=== PATIENT | male | born 1955 | race Caucasian/White ===

== ENCOUNTER 2017-10-14 19:45 | Emergency (ER) | payer MEDICARE, OTHER, SELFPAY ==
[2017-10-14] MEDS ORDERED: NA CHLORIDE 0.9% 2,000 ML ONE (20:17)
[2017-10-14 20:49] LABS: Absolute Lymphocytes (CBC) 0.9 K/uL (0.7-4.9); Absolute Monocytes 0.8 K/uL (0.1-1.3); Absolute Neutrophil 9.6 K/uL (1.8-8.0); Basophils % 0.4 % (0-1.3); Eosinophils % 0.1 % (0-4.4); Hematocrit 30.7 % (39.6-49.0); Lymphocytes % 8.3 % (15.3-44.8); MCH 30.8 pg (27.0-35.0); MCV 91.5 fL (80-100); MPV 8.3 fL (7.6-11.3); Monocytes % 6.8 % (3.3-12.3); RBC Red Blood Cell Count 3.36 M/uL (4.33-5.43)
[2017-10-14 20:51] LABS: Protime INR 1.26
[2017-10-14] MEDS ORDERED: ONDANSETRON 4 MG/2 ML VIAL ONE (20:54)
[2017-10-14] MEDS ORDERED: MORPHINE 4 MG/ML SYR ONE (20:54)
[2017-10-14 21:09] LABS: Urine Blood NEGATIVE (NEG); Urine Glucose 2+ (NEG); Urine Protein NEGATIVE (NEG); Urine Specific Gravity 1.015 (1.005-1.030)
[2017-10-14 21:17] LABS: Albumin 3.1 g/dL (3.4-5.0); Bilirubin Direct 0.2 mg/dL (0-0.2); Magnesium 2.3 mg/dL (1.8-2.4); Protein, Total 7.3 g/dL (6.4-8.2)
[2017-10-14 21:19] LABS: Potassium 5.8 mmol/L (3.5-5.1)
[2017-10-14] MEDS ORDERED: LIDOCAINE VISCOUS 2% SOLN 15 ML UDC ONE (21:20)
[2017-10-14] MEDS ORDERED: INSULIN -REGULAR HUMAN 50 UNIT/0.5 ML ML ONE ×2 (21:38→23:01)
[2017-10-14] MEDS ORDERED: PANTOPRAZOLE 40 MG INJ ONE (21:39)
[2017-10-14] MEDS ORDERED: NA CHLORIDE 0.9% 250 ML ONE (21:39)
--- NOTE | 2017-10-14 21:39 | RAD REPORT ---
EXAM DESCRIPTION: RAD - Abdomen Acute Series - 10/14/2017 9:13 pm CLINICAL HISTORY: Abdominal pain and vomiting FINDINGS: The lungs appear clear of acute infiltrate. Free air is not seen beneath the diaphragm The bowel gas pattern is unremarkable. Postsurgical changes involve the abdomen.
--- NOTE | 2017-10-14 22:20 | EDPHYS ---
Physician Documentation [facility] Name: Yoan Monterroso Sr Age: 62 yrs Sex: Male : 1955 Arrival Date: 10/14/2017 Time: 19:46 Bed 30 Private MD: ED Physician Justyn Frias HPI: 10/14 20:10 This 62 yrs old Male presents to ER via Wheelchair with complaints of pkl Nausea/Vomiting, Weakness. 20:10 The patient presents to the emergency department vomiting blood, a moderate amount, pkl bright red, 3 times since symptom onset. Onset: The symptoms/episode began/occurred yesterday, No vomiting blood today. Associated signs and symptoms: Pertinent positives: feeling weak. Historical: - Allergies: 19:52 No Known Allergies; aj - Home Meds: 19:52 Furosemide Oral [Active]; Metformin Oral [Active]; Spironolactone Oral [Active]; aj - PMHx: 19:52 Hepatitis; Hypertension; Diabetes - NIDDM; aj - PSHx: 19:52 Gastric Bypass; aj - Immunization history:: Adult Immunizations up to date. - Social history:: Smoking status: Patient/guardian denies using tobacco. - Ebola Screening: : Patient negative for fever greater than or equal to 101.5 degrees Fahrenheit, and additional compatible Ebola Virus Disease symptoms Patient denies exposure to infectious person Patient denies travel to an Ebola-affected area in the 21 days before illness onset No symptoms or risks identified at this time. ROS: 20:10 Eyes: Negative for injury, pain, redness, and discharge, ENT: Negative for injury, pkl pain, and discharge, Neck: Negative for injury, pain, and swelling, Cardiovascular: Negative for chest pain, palpitations, and edema, Respiratory: Negative for shortness of breath, cough, wheezing, and pleuritic chest pain. 20:10 Abdomen/GI: Positive for vomiting blood. 20:10 Back: Negative for acute changes. 20:10 : Negative for urinary symptoms. 20:10 MS/extremity: Negative for acute changes. 20:10 Skin: Negative for rash. 20:10 Neuro: Negative for altered mental status. Exam: 20:41 Head/Face: Normocephalic, atraumatic. Eyes: Pupils equal round and reactive to light, pkl extra-ocular motions intact. Lids and lashes normal. Conjunctiva and sclera are non-icteric and not injected. Cornea within normal limits. Periorbital areas with no swelling, redness, or edema. ENT: Nares patent. No nasal discharge, no septal abnormalities noted. Tympanic membranes are normal and external auditory canals are clear. Oropharynx with no redness, swelling, or masses, exudates, or evidence of obstruction, uvula midline. Mucous membranes moist. Neck: Trachea midline, no thyromegaly or masses palpated, and no cervical lymphadenopathy. Supple, full range of motion without nuchal rigidity, or vertebral point tenderness. No Meningismus. Chest/axilla: Normal chest wall appearance and motion. Nontender with no deformity. No lesions are appreciated. Cardiovascular: Regular rate and rhythm with a normal S1 and S2. No gallops, murmurs, or rubs. Normal PMI, no JVD. No pulse deficits. Respiratory: Lungs have equal breath sounds bilaterally, clear to auscultation and percussion. No rales, rhonchi or wheezes noted. No increased work of breathing, no retractions or nasal flaring. 20:41 Abdomen/GI: Bowel sounds: normal, Palpation: abdomen is soft and non-tender, in all quadrants. 20:41 Back: Exam negative for acute changes. 20:41 : Exam negative for acute changes. 20:41 Musculoskeletal/extremity: Exam is negative for acute changes. 20:41 Skin: Exam negative for rash. 20:41 Neuro: Orientation: is normal, Mentation: is normal, Cranial nerves: grossly normal, Motor: is normal. 21:27 Abdomen/GI: Rectal exam: Stool: guaiac positive, the exam is chaperoned by the nurse. pk Vital Signs: 19:52 BP 118 / 69; Pulse 124; Resp 19; Temp 97.8; Pulse Ox 100% on R/A; Weight 72.57 kg; aj Height 5 ft. 11 in. (180.34 cm) (R); 21:43 BP 117 / 67; Pulse 107; Resp 18; Pulse Ox 100% on R/A; Pain 0/10; mg2 19:52 Body Mass Index 22.32 (72.57 kg, 180.34 cm) aj MDM: 19:55 Patient medically screened. pkl 22:17 Data reviewed: vital signs, nurses notes, lab test result(s), EKG, radiologic studies, pkl plain films. ED course: Talked to Dr. Mckay, transfer to [facility]. 10/14 20:04 Order name: Basic Metabolic Panel; Complete Time: 21:20 pkl 10/14 20:04 Order name: CBC with Diff; Complete Time: 20:55 pkl 10/14 20:04 Order name: Ckmb; Complete Time: 21:20 pkl 10/14 20:04 Order name: CPK; Complete Time: 21:20 pkl 10/14 20:04 Order name: LFT's; Complete Time: 21:20 pkl 10/14 20:04 Order name: Magnesium; Complete Time: 21:20 pkl 10/14 20:04 Order name: NT PRO-BNP; Complete Time: 21:20 pkl 10/14 20:04 Order name: PT-INR; Complete Time: 20:55 pkl 10/14 20:04 Order name: Ptt, Activated; Complete Time: 20:55 pkl 10/14 20:04 Order name: Troponin (emerg Dept Use Only); Complete Time: 21:15 pkl 10/14 20:04 Order name: Type And Screen; Complete Time: 21:45 pkl 10/14 20:04 Order name: Amylase, Serum; Complete Time: 21:20 pkl 10/14 20:04 Order name: Lipase; Complete Time: 21:20 pkl 10/14 21:03 Order name: Urine Dipstick--Ancillary (enter results); Complete Time: 21:15 rg2 10/14 20:04 Order name: EKG; Complete Time: 20:05 pkl 10/14 20:04 Order name: Cardiac monitoring; Complete Time: 20:16 pkl 10/14 20:04 Order name: EKG - Nurse/Tech; Complete Time: 20:16 pkl 10/14 20:04 Order name: IV Saline Lock; Complete Time: 20:22 pkl 10/14 20:07 Order name: XRAY Abdomen Acute Series; Complete Time: 21:45 pkl 18 21:30 Order name: ABO/RH no charge; Complete Time: 21:45 EDMS 10/14 22:44 Order name: Chem 7; Complete Time: 23:53 mg2 10/14 22:44 Order name: CBC with Diff; Complete Time: 23:53 mg2 10/14 20:04 Order name: Labs collected and sent; Complete Time: 20: pkl 10/14 20:04 Order name: O2 Per Protocol; Complete Time: 20: pkl 10/14 20:04 Order name: O2 Sat Monitoring; Complete Time: 20: pkl 10/14 20:04 Order name: Urine Dipstick-Ancillary (obtain specimen); Complete Time: : pkl 10/14 21:29 Order name: Accucheck Blood Glucose: q hourly; Complete Time: 23:27 pkl Administered Medications: 20:21 Drug: NS 0.9% 1000 ml Route: IV; Rate: 1000 ml; Site: right antecubital; mg2 23:42 Follow up: Response: No adverse reaction; IV Status: Completed infusion mg2 21:21 Drug: morphine 4 mg Route: IVP; Site: right antecubital; mg2 23:42 Follow up: Response: No adverse reaction; Marked relief of symptoms mg2 21:21 Drug: Zofran 4 mg Route: IVP; Site: right antecubital; mg2 23:42 Follow up: Response: No adverse reaction; Marked relief of symptoms mg2 21:42 Drug: ProTONIX 8 mg/hr Route: IV; Rate: 25 ml/hr; Site: right antecubital; mg2 23:41 Follow up: Response: No adverse reaction; IV Status: Completed infusion; Infusion mg2 continued upon transfer 21:43 Drug: NS 0.9% 1000 ml Route: IV; Rate: 125 ml/hr; Site: right antecubital; mg2 23:42 Follow up: Response: No adverse reaction; IV Status: Infusion continued upon transfer mg2 21:53 Drug: Insulin Regular Human 10 units {Co-Signature: tl3 (Tisha Stubbs RN).} Route: IVP; mg2 Site: right antecubital; 22:40 Follow up: Response: No adverse reaction; Blood sugar is lowered mg2 23:00 Drug: Insulin Regular Human 10 units {Co-Signature: tl3 (Tisha Stubbs RN).} Route: IVP; mg2 Site: right antecubital; 23:40 Follow up: Response: No adverse reaction; Other; patient transferred to [place] [id number] Point of Care Testing: Guaiac: 21:29 Stool Guaiac: Positive; Stool Hemoccult Control: Pass; mg2 Disposition: 10/14/17 22:20 Transfer ordered to [facility] (formerly [facility]3]. Diagnosis is G. I. Bleeding. Uncontrolled diabetes. Dehydration. - Reason for transfer: Higher level of care. - Accepting physician is Dr. Mckay. - Condition is Stable. - Problem is new. - Symptoms have improved. Signatures: Dispatcher [employer] EDMS Rayna De Luna RN RN aj Justyn Frias MD MD pkl Saman Kulkarni RN RN mg2 Tisha Stubbs RN tl3 Corrections: (The following items were deleted from the chart) 21:06 20:05 Chest Single View+RAD.RAD.BRZ ordered. EDMS EDMS 21:28 20:45 NG Tube ordered. pkl mg2 23:44 22:20 10/14/2017 22:20 Transfer ordered to [facility] (formerly [facility]3]. Diagnosis is G. I. Bleeding. mg2 Uncontrolled diabetes. Dehydration. Reason for transfer: Higher level of care. Accepting physician is Dr. Mckay. Condition is Stable. Problem is new. Symptoms have improved. pkl
--- NOTE | 2017-10-14 22:20 | ER ---
Nurse's Notes [facility] Name: Yoan Monterroso Sr Age: 62 yrs Sex: Male : 1955 Arrival Date: 10/14/2017 Time: 19:46 Bed 30 Private MD: Diagnosis: G. I. Bleeding. Uncontrolled diabetes. Dehydration Presentation: 10/14 19:50 Presenting complaint: Patient states: Vomiting yesterday with dark red blood. Patient aj reports feeling weak and fatigued with headache. Transition of care: patient was not received from another setting of care. Onset of symptoms was October 13, 2017. Risk Assessment: Do you want to hurt yourself or someone else? Patient reports no desire to harm self or others. Initial Sepsis Screen: Does the patient meet any 2 criteria? HR > 90 bpm. Does the patient have a suspected source of infection? No. Patient's initial sepsis screen is negative. Care prior to arrival: None. 19:50 Method Of Arrival: Wheelchair aj 19:50 Acuity: UMER 3 aj Triage Assessment: 19:52 General: Appears in no apparent distress. uncomfortable, Behavior is calm, cooperative, aj appropriate for age. Pain: Denies pain. Neuro: Level of Consciousness is awake, alert, obeys commands, Oriented to person, place, time, situation, Appropriate for age. Respiratory: Airway is patent Respiratory effort is even, unlabored, Respiratory pattern is regular, symmetrical. GI: Reports nausea, vomiting. Derm: Skin is intact, is healthy with good turgor, Skin is pink, warm \T\ dry. normal. Historical: - Allergies: 19:52 No Known Allergies; aj - Home Meds: 19:52 Furosemide Oral [Active]; Metformin Oral [Active]; Spironolactone Oral [Active]; aj - PMHx: 19:52 Hepatitis; Hypertension; Diabetes - NIDDM; aj - PSHx: 19:52 Gastric Bypass; aj - Immunization history:: Adult Immunizations up to date. - Social history:: Smoking status: Patient/guardian denies using tobacco. - Ebola Screening: : Patient negative for fever greater than or equal to 101.5 degrees Fahrenheit, and additional compatible Ebola Virus Disease symptoms Patient denies exposure to infectious person Patient denies travel to an Ebola-affected area in the 21 days before illness onset No symptoms or risks identified at this time. Screenin:22 Abuse screen: Denies threats or abuse. Denies injuries from another. Nutritional mg2 screening: No deficits noted. Tuberculosis screening: No symptoms or risk factors identified. Fall Risk IV access (20 points). Assessment: 20:23 General: Appears in no apparent distress. comfortable, Behavior is calm, cooperative. mg2 Pain: Denies pain. Neuro: Level of Consciousness is awake, alert, obeys commands, Oriented to person, place, time, situation. Respiratory: Airway is patent Respiratory effort is even, unlabored, Respiratory pattern is regular, symmetrical. GI: Reports hematemesis. : No signs and/or symptoms were reported regarding the genitourinary system. EENT: No signs and/or symptoms were reported regarding the EENT system. Derm: Skin is intact, Skin is pale. Musculoskeletal: No signs and/or symptoms reported regarding the musculoskeletal system. 20:59 Reassessment: patient sent to xray. mg2 23:43 Reassessment: report given to Caroline Camp RN of [facility]. mg2 Vital Signs: 19:52 BP 118 / 69; Pulse 124; Resp 19; Temp 97.8; Pulse Ox 100% on R/A; Weight 72.57 kg; aj Height 5 ft. 11 in. (180.34 cm) (R); 21:43 BP 117 / 67; Pulse 107; Resp 18; Pulse Ox 100% on R/A; Pain 0/10; mg2 19:52 Body Mass Index 22.32 (72.57 kg, 180.34 cm) aj ED Course: 19:46 Patient arrived in ED. al2 19:50 Triage completed. aj 19:52 Arm band placed on left wrist. Patient placed in an exam room. aj 19:55 Justyn Frias MD is Attending Physician. pkl 20:10 Saman Kulkarni, SARMAD is Primary Nurse. mg2 20:23 Inserted saline lock: 20 gauge in right antecubital area, using aseptic technique. mg2 Blood collected. 20:29 Patient has correct armband on for positive identification. Placed in gown. Call light mg2 in reach. Side rails up X 1. Pulse ox on. NIBP on. Door closed. Warm blanket given. 21:09 XRAY Abdomen Acute Series In Process Unspecified. EDMS 21:19 Notified ED physician of a critical lab result(s). Dr Frias informed of lab results tl3 Notified primary nurse of K 5.8 and Glu 539. 21:28 Served as a petroleum geologist during rectal exam. mg2 23:43 Patient transferred, IV remains in place. mg2 Administered Medications: 20:21 Drug: NS 0.9% 1000 ml Route: IV; Rate: 1000 ml; Site: right antecubital; mg2 23:42 Follow up: Response: No adverse reaction; IV Status: Completed infusion mg2 21:21 Drug: morphine 4 mg Route: IVP; Site: right antecubital; mg2 23:42 Follow up: Response: No adverse reaction; Marked relief of symptoms mg2 21:21 Drug: Zofran 4 mg Route: IVP; Site: right antecubital; mg2 23:42 Follow up: Response: No adverse reaction; Marked relief of symptoms mg2 21:42 Drug: ProTONIX 8 mg/hr Route: IV; Rate: 25 ml/hr; Site: right antecubital; mg2 23:41 Follow up: Response: No adverse reaction; IV Status: Completed infusion; Infusion mg2 continued upon transfer 21:43 Drug: NS 0.9% 1000 ml Route: IV; Rate: 125 ml/hr; Site: right antecubital; mg2 23:42 Follow up: Response: No adverse reaction; IV Status: Infusion continued upon transfer mg2 21:53 Drug: Insulin Regular Human 10 units {Co-Signature: tl3 (Tisha Stubbs RN).} Route: IVP; mg2 Site: right antecubital; 22:40 Follow up: Response: No adverse reaction; Blood sugar is lowered mg2 23:00 Drug: Insulin Regular Human 10 units {Co-Signature: tl3 (Tisha Stubbs RN).} Route: IVP; mg2 Site: right antecubital; 23:40 Follow up: Response: No adverse reaction; Other; patient transferred to [facility] mg2 Point of Care Testing: Guaiac: 21:29 Stool Guaiac: Positive; Stool Hemoccult Control: Pass; mg2 Intake: Outcome: 22:20 ER care complete, transfer ordered by MD. lam 23:43 Transferred by ground EMS to [facility], Transfer form mg2 completed. 23:43 Condition: stable 23:43 Instructed on the need for transfer, Demonstrated understanding of instructions. 23:44 Patient left the ED. mg2 Signatures: Dispatcher [employer] Rayna Franco RN RN gustabo Justyn Frias MD MD pksantiago Aleaxndra, Lina al2 Tisha Stubbs, SARMAD RN tl3 Saman Kulkarni RN RN mg2 Tisha Stubbs RN tl3
[2017-10-14 23:07] LABS: Absolute Lymphocytes (CBC) 1.1 K/uL (0.7-4.9); Absolute Monocytes 0.7 K/uL (0.1-1.3); Absolute Neutrophil 9.7 K/uL (1.8-8.0); Basophils % 0.2 % (0-1.3); Eosinophils % 0.1 % (0-4.4); Hematocrit 25.1 % (39.6-49.0); Lymphocytes % 9.8 % (15.3-44.8); MCH 30.5 pg (27.0-35.0); MCV 89.9 fL (80-100); MPV 8.3 fL (7.6-11.3); Monocytes % 6.3 % (3.3-12.3); RBC Red Blood Cell Count 2.79 M/uL (4.33-5.43)
[2017-10-14 23:17] LABS: Potassium 4.7 mmol/L (3.5-5.1)
--- NOTE | 2017-10-15 07:46 | EKG ---
Test Date: 2017-10-14 Test Time: 20:08:09 Ship'S Officer: TL MEASUREMENT RESULTS: Intervals: Rate: 114 HI: 120 QRSD: 80 QT: 332 QTc: 457 [place]: P: 63 HI: 120 QRS: 16 T: 53 INTERPRETIVE STATEMENTS: Sinus tachycardia Otherwise normal ECG Compared to ECG 09/26/2003 20:17:00 Atrial abnormality no longer present T-wave abnormality no longer present Electronically Signed On 10-15-17 07:45:06 CDT by Malik Thomas
== END 2017-10-14 23:44 | disposition short-term general hospital (02) ==
LOC: ER 19:45
DX: K92.2 Gastrointestinal hemorrhage, unspecified (principal); I10 Essential (primary) hypertension; E11.65 Type 2 diabetes mellitus with hyperglycemia; Z79.84 Long term (current) use of oral hypoglycemic drugs; K75.9 Inflammatory liver disease, unspecified; E86.0 Dehydration
CPT/HCPCS: 36415; 74022; 80048; 80076; 81003; 82150; 82550; 82553; 82962; 83690; 83735; 83880; 84484; 85025; 85610; 85730; 86850; 86900; 86901; 93005; 96361; 96365; 96366; 96375; 99285; C9113; J2405; J7030

== ENCOUNTER 2018-10-23 18:27 | Inpatient (IN) | payer OTHER, SELFPAY ==
--- OUTSIDE RECORDS SUMMARY | 2018-10-23 18:29 | XMS REPORT | Summary of Care ---
:1955 Author Organization [facility] Address [address] [place] [address] Care Team Providers Name Role Phone Junito Delong MD Primary Care Provider Reason for Visit Reason Comments Refill Request Encounter Details Date Type Department Care Team Description 09/26/2018 Refill [facility] Junito Delong MD Refill Request - [address] [phone] [place] [phone] Allergies No Known Allergiesdocumented as of this encounter (statuses as of 09/26/2018) Medications Medication Sig Dispensed Refills Start Date End Date Status sucralfate 1 gram tablet Take 1 tablet 120 tablet 11 03/19/2017 Active by mouth 4 (four) times daily. pantoprazole 40 mg EC Take 1 tablet 30 tablet 3 10/18/2017 Active tablet by mouth daily. metFORMIN 1,000 mg Take 1 tablet 30 tablet 2 10/18/2017 Active tablet by mouth 2 (two) times daily with meals. spironolactone 100 mg Take 100 mg by 0 Active tablet mouth daily. furosemide 20 mg tablet Take 20 mg by 0 Active mouth daily. documented as of this encounter (statuses as of 09/26/2018) Active Problems Problem Noted Date Gastrointestinal hemorrhage with hematemesis 10/24/2017 Overview: Added automatically from request for surgery [id number] Hematemesis 10/15/2017 GI bleed 10/15/2017 Iron deficiency anemia, unspecified iron deficiency anemia type 10/14/2017 Overview: Added automatically from request for surgery [id number] Hematemesis, presence of nausea not specified 10/14/2017 Overview: Added automatically from request for surgery [id number] Other iron deficiency anemia 03/15/2017 Overview: Added automatically from request for surgery [id number] Anemia 03/14/2017 documented as of this encounter (statuses as of 09/26/2018) Social History Tobacco Use Types Packs/Day Years Used Date Former Smoker Smokeless Tobacco: Never Used Comments: 2 ppd for 20 yrs Alcohol Use Drinks/Week oz/Week Comments Not Currently Sex Assigned at Date Recorded Not on file Job Start Date Occupation Industry Not on file Not on file Not on file Travel History Travel Start Travel End No recent travel history available. documented as of this encounter Last Filed Vital Signs Not on filedocumented in this encounter Plan of Treatment Date Type Specialty Care Team Description 10/11/2018 Office Visit Family Medicine Junito Delong MD [address] [place] [address] [address] [place], [place] [phone] Health Maintenance Due Date Last Done Comments EYE EXAM 09/23/1963 LDL-C 09/23/1963 URINE MICROALBUMIN 09/23/1963 FOOT EXAM 09/23/1971 DTaP,Tdap,and Td Vaccines (1 - 1972 Tdap) Zoster Recombinant Vaccine 09/23/2003 (SHINGRIX) (1 of 2) LUNG CANCER SCREEN: Recommended 2008 for age 55-80 with 30 + pack year history Medicare Wellness Visit 2018 PNEUMOCOCCAL VACCINES 65+ (1 of 2 2018 - PCV13) INFLUENZA VACCINE 10/28/2018 HgA1C 03/14/2019 09/11/2018, 10/15/2017, 10/15/2017, Additional history exists CREATININE (SERUM) 09/12/2019 09/11/2018, 10/17/2017, 10/16/2017, Additional history exists COLONOSCOPY 03/17/2027 03/17/2017 HEPATITIS C (HCV) SCREEN Completed 03/14/2017 documented as of this encounter Results Not on filedocumented in this encounter Insurance Payer Benefit Plan / Subscriber ID Effective Phone Address Type Group Dates MEDICARE MEDICARE PART xxxxxxxxxxx 2018-Paula [phone] & B nt [id number] [place] [id number] [facility] [place] [id number] 2016-Paula [employer] nt documented as of this encounter
--- OUTSIDE RECORDS SUMMARY | 2018-10-23 18:29 | XMS REPORT | Clinical Summary ---
:1955 Author Organization [facility] Address [address] [place] [address] Care Team Providers Name Role Phone Quincy Joshi MD Primary Care Provider Allergies No Known Allergies Medications Medication Sig Dispensed Refills Start Date End Date Status furosemide (LASIX) 20 mg tablet 0 03/19/2017 Active lisinopril (PRINIVIL,ZESTRIL) 20 mg 0 04/05/2017 Active tablet metFORMIN (GLUCOPHAGE) 500 mg tablet 0 03/31/2017 Active pantoprazole (PROTONIX) 40 MG EC 0 03/19/2017 Active tablet spironolactone (ALDACTONE) 100 MG 0 03/19/2017 Active tablet sucralfate (CARAFATE) 1 gram tablet 0 03/19/2017 Active Active Problems Problem Noted Date Hepatitis C virus infection without hepatic coma 08/02/2017 Abnormal liver enzymes 08/02/2017 Cirrhosis of liver without ascites 08/02/2017 Portal hypertension 08/02/2017 Social History Tobacco Use Types Packs/Day Years Used Date Never Assessed Sex Assigned at Date Recorded Not on file Job Start Date Occupation Industry Not on file Not on file Not on file Travel History Travel Start Travel End No recent travel history available. Last Filed Vital Signs Not on file Plan of Treatment Health Maintenance Due Date Last Done Comments COLONOSCOPY SCREENING 09/23/2003 SHINGLES VACCINES (#1) 09/23/2003 65+ PNEUMOCOCCAL VACCINE (1 of 2 - PCV13) 2018 INFLUENZA VACCINE 09/27/2018 Results Not on fileafter 10/22/2017 [phone] [address] (Home) [address] [place] [address] Yoan Monterroso Transplant Self 1955 [phone] [address] (Home) [address] [place] [address] Advance Directives For more information, please contact: [phone] Type Date Recorded Patient Rental Clerk Explanation Advance Directives, Living Will 04/20/2017 4:16 PM and Medical Power of Dental Mechanic
--- OUTSIDE RECORDS SUMMARY | 2018-10-23 18:30 | XMS REPORT | Summary of Care ---
:1955 Author Organization [facility] Address [address] [place] [id number] Care Team Providers Name Role Phone Junito Delong MD Primary Care Provider Reason for Visit Reason Comments Refill Request Encounter Details Date Type Department Care Team Description 09/24/2018 Refill [facility] Junito Delogn MD Refill Request - [address] [phone] [place] [phone] Allergies No Known Allergiesdocumented as of this encounter (statuses as of 09/27/2018) Medications Medication Sig Dispensed Refills Start Date End Date Status sucralfate 1 gram Take 1 120 tablet 11 03/19/2017 Active tablet tablet by mouth 4 (four) times daily. metFORMIN 1,000 mg Take 1 30 tablet 2 10/18/2017 Active tablet tablet by mouth 2 (two) times daily with meals. pantoprazole 40 mg EC Take 1 30 tablet 3 09/27/2018 Active tabletIndications: tablet by Gastroesophageal mouth daily. reflux disease, esophagitis presence not specified pantoprazole 40 mg EC Take 1 30 tablet 3 10/18/2017 Discontinued tablet tablet by 9 mouth daily. spironolactone 100 mg Take 100 mg 0 Discontinued tablet by mouth 9 daily. furosemide 20 mg Take 20 mg 0 Discontinued tablet by mouth 9 daily. documented as of this encounter (statuses as of 09/27/2018) Active Problems Problem Noted Date Gastrointestinal hemorrhage with hematemesis 10/24/2017 Overview: Added automatically from request for surgery [id number] Hematemesis 10/15/2017 GI bleed 10/15/2017 Iron deficiency anemia, unspecified iron deficiency anemia type 10/14/2017 Overview: Added automatically from request for surgery [id number] Hematemesis, presence of nausea not specified 10/14/2017 Overview: Added automatically from request for surgery [id number] Other iron deficiency anemia 03/15/2017 Overview: Added automatically from request for surgery [id number] Anemia 03/14/2017 documented as of this encounter (statuses as of 09/27/2018) Social History Tobacco Use Types Packs/Day Years [...] Office Visit Family Medicine Junito Delong MD [address] [place] [address] DR [place], [place] [phone] Health Maintenance Due Date Last Done Comments [...] Results Not on filedocumented in this encounter Visit Diagnoses Diagnosis Gastroesophageal reflux disease, esophagitis presence not specified - Primary documented in this encounter Insurance Payer Benefit Plan / Subscriber ID Effective Phone Address Type Group Dates MEDICARE MEDICARE PART xxxxxxxxxxx 2018-Paula [phone] Medicare A & B nt [id number] [place] [phone] [facility] [id number] 2016-Paula [employer] nt documented as of this encounter
--- OUTSIDE RECORDS SUMMARY | 2018-10-23 18:30 | XMS REPORT | Summary of Care ---
:1955 Author Organization [facility] Address [address] [place] [address] Care Team Providers Name Role Phone Junito Delong MD Primary Care Provider Reason for Visit Reason Comments Refill Request Encounter Details Date Type Department Care Team Description 09/26/2018 Refill [facility] Family Medicine Junito Delong MD Refill Request - [address] [address] [place] [phone] Allergies No Known Allergiesdocumented as of this encounter (statuses as of 09/26/2018) Medications Medication Sig Dispensed Refills Start Date End Date Status sucralfate 1 gram Take 1 120 tablet 11 03/19/2017 Active tablet tablet by mouth 4 (four) times daily. pantoprazole 40 mg Take 1 30 tablet 3 10/18/2017 Active EC tablet tablet by mouth daily. metFORMIN 1,000 mg Take 1 30 tablet 2 10/18/2017 Active tablet tablet by mouth 2 (two) times daily with meals. FUROSEMIDE 20 mg TAKE 1 90 tablet 0 09/26/2018 Active tablet TABLET BY MOUTH DAILY SPIRONOLACTONE 100 TAKE 1 90 tablet 0 09/26/2018 Active mg tablet TABLET BY MOUTH DAILY spironolactone 100 Take 100 mg 0 09/26/2018 Discontinued mg tablet by mouth daily. furosemide 20 mg Take 20 mg 0 09/26/2018 Discontinued tablet by mouth daily. documented as of this encounter (statuses as of 09/26/2018) Active Problems Problem Noted Date Gastrointestinal hemorrhage with hematemesis 10/24/2017 Overview: Added automatically from request for surgery [id number] Hematemesis 10/15/2017 GI bleed 10/15/2017 Iron deficiency anemia, unspecified iron deficiency anemia type 10/14/2017 Overview: Added automatically from request for surgery [id number] Hematemesis, presence of nausea not specified 10/14/2017 Overview: Added automatically from request for surgery [id number] Other iron deficiency anemia 03/15/2017 Overview: Added automatically from request for surgery [id number] Anemia 03/14/2017 documented as of this encounter [...] Office Visit Family Medicine Junito Delong MD [address] [place] [address] [place] [phone] Health Maintenance Due Date Last Done Comments [...] BOX Medicare A & B nt [id number] NATALIE BOATENG [phone] [facility] [id number] 2016-Paula [employer] nt documented as of this encounter
--- OUTSIDE RECORDS SUMMARY | 2018-10-23 18:30 | XMS REPORT | Summary of Care ---
:1955 Author Organization [facility] Address [address] [place] [address] Care Team Providers Name Role Phone Junito Delong MD Primary Care Provider Reason for Visit Reason Comments Refill Request Encounter Details Date Type Department Care Team Description 09/26/2018 Refill [facility] Family Medicine Junito Delong MD Refill Request - [address] [address] [place] [phone] Allergies No Known Allergiesdocumented as of this [...] Overview: Added automatically from request for surgery [id number] Hematemesis 10/15/2017 GI bleed 10/15/2017 Iron deficiency anemia, unspecified iron deficiency anemia type 10/14/2017 Overview: Added automatically from request for surgery [id number] Hematemesis, presence of nausea not specified 10/14/2017 Overview: Added automatically from request for surgery [id number] Other iron deficiency anemia 03/15/2017 Overview: Added automatically from request for surgery [id number] Anemia 03/14/2017 documented as of this encounter [...] Office Visit Family Medicine Junito Delong MD [address] [place] [address] [address] [place], [place] [phone] Health Maintenance Due Date Last Done Comments [...] BOX Medicare A & B nt [id number] NATALIE BOATENG [address] [facility] [id number] 2016-Paula [employer] nt documented as of this encounter
--- OUTSIDE RECORDS SUMMARY | 2018-10-23 18:30 | XMS REPORT | Summary of Care ---
:1955 Author Organization [facility] Address [address] [place] [address] Care Team Providers Name Role Phone Junito Delong MD Primary Care Provider Reason for Visit Reason Comments Follow-up Labs Encounter Details Date Type Department Care Team Description 10/11/2018 Office Visit [facility] Family Junito Delong Hepatitis C virus infection without hepatic coma, unspecified chronicity (Primary Dx); Medicine - Yuni Lucero MD Type 2 diabetes mellitus without complication, without long-term current use of insulin [facility] [address] [place] [address] [address] [place], [place] [phone] Allergies No Known Allergiesdocumented as of this encounter (statuses as of 10/11/2018) Medications Medication Sig Dispensed Refills Start Date End Date Status sucralfate 1 gram tablet Take 1 tablet 120 tablet 11 03/19/2017 Active by mouth 4 (four) times daily. metFORMIN 1,000 mg tablet Take 1 tablet 30 tablet 2 10/18/2017 Active by mouth 2 (two) times daily with meals. pantoprazole 40 mg EC Take 1 tablet 30 tablet 3 09/27/2018 Active tabletIndications: by mouth Gastroesophageal reflux daily. disease, esophagitis presence not specified FUROSEMIDE 20 mg tablet TAKE 1 TABLET 90 tablet 0 09/26/2018 Active BY MOUTH DAILY SPIRONOLACTONE 100 mg TAKE 1 TABLET 90 tablet 0 09/26/2018 Active tablet BY MOUTH DAILY documented as of this encounter (statuses as of 10/11/2018) Active Problems Problem Noted Date Gastrointestinal hemorrhage with hematemesis 10/24/2017 Overview: Added automatically from request for surgery [id number] Hematemesis 10/15/2017 GI bleed 10/15/2017 Iron deficiency anemia, unspecified iron deficiency anemia type 10/14/2017 Overview: Added automatically from request for surgery [id number] Hematemesis, presence of nausea not specified 10/14/2017 Overview: Added automatically from request for surgery [id number] Other iron deficiency anemia 03/15/2017 Overview: Added automatically from request for surgery [id number] Anemia 03/14/2017 documented as of this encounter (statuses as of 10/11/2018) Social History Tobacco Use Types Packs/Day Years [...] of this encounter Last Filed Vital Signs Vital Sign Reading Time Taken Comments Blood Pressure 118/76 10/11/2018 8:14 AM CDT Pulse 68 10/11/2018 8:14 AM CDT Temperature 36.2 C (97.1 F) 10/11/2018 8:14 AM CDT Respiratory Rate 18 10/11/2018 8:14 AM CDT Oxygen Saturation - - Inhaled Oxygen Concentration - - Weight 83.6 kg (184 lb 6.4 oz) 10/11/2018 8:14 AM CDT Height 177.8 cm (5' 10") 10/11/2018 8:14 AM CDT Body Mass Index 26.46 10/11/2018 8:14 AM CDT documented in this encounter Patient Instructions Patient InstructionsVesJunito paulson MD - 10/11/2018 8:15 AM CDT Results for YOAN MONTERROSO ( ) as of 10/11/2018 08:21 Ref. Range 09/11/2018 08:01 ALK PHOS Latest Ref Range: 34 - 122 U/L 165 (H) ALT(SGPT) Latest Ref Range: 9 - 51 U/L 138 (H) AST(SGOT) Latest Ref Range: 13 - 40 U/L 110 (H) HCV PCR Latest Ref Range: Not detected IU/mL 3,155,005 HCV by Real Time PCR Quantitative Log Latest Ref Range: Not detected log IU/mL 6.50 documented in this encounter Progress Notes Junito Delong MD - 10/11/2018 8:15 AM CDT CC: patient here to follow up hep c, cirrhosis and diabetes Yoan is a 63 year old male Patient still has hep c and cirrhosis. Patient has appointment with Dr Aguilar next week Diabetes He presents for his follow-up diabetic visit. He has type 2 diabetes mellitus. Pertinent negatives for diabetes include no blurred vision, no chest pain, no fatigue, no foot ulcerations, no polydipsia,no polyphagia, no polyuria, no visual change, no weakness and no weight loss. Symptoms are stable. Current diabetic treatment includes oral agent (monotherapy). No Known Allergies Current Outpatient Medications Medication Sig Dispense Refill pantoprazole 40 mg EC tablet Take 1 tablet by mouth daily. 30 tablet 3 FUROSEMIDE 20 mg tablet TAKE 1 TABLET BY MOUTH DAILY 90 tablet 0 SPIRONOLACTONE 100 mg tablet TAKE 1 TABLET BY MOUTH DAILY 90 tablet 0 metFORMIN 1,000 mg tablet Take 1 tablet by mouth 2 (two) times daily with meals. 30 tablet 2 sucralfate 1 gram tablet Take 1 tablet by mouth 4 (four) times daily. 120 tablet 11 No current facility-administered medications for this visit. Past Medical History: Diagnosis Date Alcoholic cirrhosis Asbestosis 2016 Asbestosis Diabetes Esophageal varices HCV (hepatitis C virus) HTN (hypertension) Pancreatitis Upper GI bleed Past Surgical History: Procedure Laterality Date CHOLECYSTECTOMY COLONOSCOPY N/A 03/17/2017 Surgeon: Olman Jiménez MD; Location: [facility]oscopy ([facility] OR Location ESOPHAGOGASTRODUODENOSCOPY N/A 03/17/2017 Surgeon: Olman Jiménez MD; Location: Endoscopy ([facility]) OR Location ESOPHAGOGASTRODUODENOSCOPY N/A 03/28/2017 Surgeon: Keagan Box MD; Location: Endoscopy ([facility]) OR Location ESOPHAGOGASTRODUODENOSCOPY Left 10/16/2017 Surgeon: Mich Castillo MD; Location: Endoscopy ([facility]) OR Location LAPAROSCOP GASTRIC BYPASS 2013 OTHER gastric bypass Social History Socioeconomic History Marital status: Spouse name: Not on file Number of children: Not on file Years of education: Not on file Highest education level: Not on file Occupational History Not on file Social Needs Financial resource strain: Not on file Food insecurity: Worry: Not on file Inability: Not on file Transportation needs: Medical: Not on file Non-medical: Not on file Tobacco Use Smoking status: Former Smoker Smokeless tobacco: Never Used Tobacco comment: 2 ppd for 20 yrs Substance and Sexual Activity Alcohol use: Not Currently Drug use: No Sexual activity: Not Currently Lifestyle Physical activity: Days per week: Not on file Minutes per session: Not on file Stress: Not on file Relationships Social connections: Talks on phone: Not on file Gets together: Not on file Attends alevism service: Not on file Active member of club or organization: Not on file Attends meetings of clubs or organizations: Not on file Relationship status: Not on file Intimate partner violence: Fear of current or ex partner: Not on file Emotionally abused: Not on file Physically abused: Not on file Forced sexual activity: Not on file Other Topics Concern Not on file Social History Narrative Worked in the [employer] Family History Problem Relation Age of Onset Alzheimers dementia Father Review of Systems Constitutional: Negative for fatigue and weight loss. Eyes: Negative for blurred vision. Cardiovascular: Negative for chest pain. Genitourinary: Negative for polyuria. Neurological: Negative for weakness. Endocrine: Negative for polydipsia, polyphagia, polyuria and weight loss. BP 118/76 (BP Location: Left arm, Patient Position: Sitting, BP CUFF SIZE: Adult Large) | Pulse 68| Temp 36.2 C (97.1 F) (Tympanic) | Resp 18 | Ht 5 ' 10" (1.778 m) | Wt 184 lb 6.4 oz (83.6 kg) | BMI 26.46 kg/m Physical Exam Constitutional: He is oriented to person, place, and time. He appears well- developed and well-nourished. HENT: Head: Normocephalic and atraumatic. Eyes: Conjunctivae are normal. Neck: Normal range of motion. Neck supple. No JVD present. No tracheal deviation present. No thyromegaly present. Cardiovascular: Normal rate, regular rhythm, normal heart sounds and intact distal pulses. Exam reveals no gallop and no friction rub. No murmur heard. Pulmonary/Chest: Effort normal and breath sounds normal. No respiratory distress. He has no wheezes.He has no rales. He exhibits no tenderness. Abdominal: Soft. Bowel sounds are normal. He exhibits no distension and no mass. There is no tenderness. There is no rebound and no guarding. Musculoskeletal: Normal range of motion. He exhibits no edema or tenderness. Lymphadenopathy: He has no cervical adenopathy. Neurological: He is alert and oriented to person, place, and time. Skin: Skin is warm and dry. Diagnosis: 1. Hepatitis C virus infection without hepatic coma, unspecified chronicity 2. Type 2 diabetes mellitus without complication, without long-term current use of insulin Follow up: prn Patient Care Team: Junito Delong MD as PCP - General ([facility]-FAMILY MEDICINE) Plan of care, desired health behaviors, goals,& medication discussed with patient. Education resources & self management tools provided and reviewed with AVS. Patient/guardian/family verbalized understanding & agrees to plan of care. Barriers to care: None Ability to manage care: Good documented in this encounter Plan of Treatment Health Maintenance Due Date [...] of 2 2018 - PCV13) INFLUENZA VACCINE (#1) 2018 HgA1C 03/14/2019 09/11/2018, 10/15/2017, 10/15/2017, Additional history exists CREATININE (SERUM) 09/12/2019 09/11/2018, 10/17/2017, 10/16/2017, Additional history exists COLONOSCOPY 03/17/2027 03/17/2017 HEPATITIS C (HCV) SCREEN Completed 03/14/2017 documented as of this encounter Results Not on filedocumented in this encounter Visit Diagnoses Diagnosis Hepatitis C virus infection without hepatic coma, unspecified chronicity - Primary Type 2 diabetes mellitus without complication, without long-term current use of insulin documented in this encounter Insurance Payer Benefit Plan / Subscriber ID Effective Phone Address Type Group Dates MEDICARE MEDICARE PART xxxxxxxxxxx 2018-Paula [phone] Medicare A & B nt [id number] NATALIE BOATENG [phone] [facility] [id number] 2016-Paula LI [employer] nt documented as of this encounter
--- OUTSIDE RECORDS SUMMARY | 2018-10-23 18:30 | XMS REPORT ---
:1955 [facility] Address [address] [place] [address] [address] [place] [address] Care Team Providers Name Role Phone Unavailable Unavailable Unavailable Problems This patient has no known problems. Allergies, Adverse Reactions, Alerts This patient has no known allergies or adverse reactions. Medications This patient has no known medications.
--- OUTSIDE RECORDS SUMMARY | 2018-10-23 18:30 | XMS REPORT | Summary of Care ---
:1955 Author Organization [facility] Address [address] [place] [address] Care Team Providers Name Role Phone uJnito Delong MD Primary Care Provider Reason for Visit Reason Comments TEST RESULTS Encounter Details Date Type Department Care Team Description 09/27/2018 Telephone [facility] Family Medicine Junito Delong, TEST RESULTS - [place] [facility] [address] [place] [address] [place] [phone] Allergies No Known Allergiesdocumented as of this encounter (statuses as of 09/28/2018) Medications Medication Sig Dispensed Refills Start Date [...] as of this encounter (statuses as of 09/28/2018) Active Problems Problem Noted Date Gastrointestinal hemorrhage with hematemesis 10/24/2017 Overview: Added automatically from request for surgery [id number] Hematemesis 10/15/2017 GI bleed 10/15/2017 Iron deficiency anemia, unspecified iron deficiency anemia type 10/14/2017 Overview: Added automatically from request for surgery [id number] Hematemesis, presence of nausea not specified 10/14/2017 Overview: Added automatically from request for surgery [id number] Other iron deficiency anemia 03/15/2017 Overview: Added automatically from request for surgery [id number] Anemia 03/14/2017 documented as of this encounter (statuses as of 09/28/2018) Social History Tobacco Use Types Packs/Day Years [...] Office Visit Family Medicine Junito Delong MD [address] [place] [address] [place] [phone] Health Maintenance Due Date Last Done Comments [...] BOX Medicare A & B nt [id number] [place] [address] [facility] [id number] 2016-Paula [employer] nt documented as of this encounter
--- OUTSIDE RECORDS SUMMARY | 2018-10-23 18:30 | XMS REPORT | Summary of Care ---
:1955 Author Organization [facility] Address [address] [place] [address] Care Team Providers Name Role Phone Junito Delong MD Primary Care Provider Reason for Visit Reason Comments Follow-up Labs Encounter Details Date Type Department Care Team Description 10/11/2018 Office Visit [facility] Family Junito Delong Hepatitis C virus infection without hepatic coma, unspecified chronicity (Primary Dx); Medicine - Yuni Lucero MD Type 2 diabetes mellitus without complication, without long-term current use of insulin [facility] [address] [place] [address] [address], [place] [phone] Allergies No Known Allergiesdocumented as of this [...] Overview: Added automatically from request for surgery [id number] Hematemesis 10/15/2017 GI bleed 10/15/2017 Iron deficiency anemia, unspecified iron deficiency anemia type 10/14/2017 Overview: Added automatically from request for surgery [id number] Hematemesis, presence of nausea not specified 10/14/2017 Overview: Added automatically from request for surgery [id number] Other iron deficiency anemia 03/15/2017 Overview: Added automatically from request for surgery [id number] Anemia 03/14/2017 documented as of this encounter [...] file Gets together: Not on file Attends confucianism service: Not on file Active member of [...] file Social History Narrative Worked in the [employer] Family History Problem Relation Age of Onset [...] BOX Medicare A & B nt [id number] NATALIE BOATENG [phone] [facility] [id number] 2016-Paula LI [employer] nt documented as of this encounter
--- OUTSIDE RECORDS SUMMARY | 2018-10-23 18:30 | XMS REPORT | Summary of Care ---
:1955 Author Organization [facility] Address [address] [place] [address] Care Team Providers Name Role Phone Junito Delong MD Primary Care Provider Reason for Visit Reason Comments Follow-up Labs Encounter Details Date Type Department Care Team Description 10/11/2018 Office Visit [facility] Family Junito Delong Hepatitis C virus infection without hepatic coma, unspecified chronicity (Primary Dx); Medicine - Yuni Lucero MD Type 2 diabetes mellitus without complication, without long-term current use of insulin [facility] [address] [place] [address] [address], [place] [phone] Allergies No Known Allergiesdocumented as of this [...] Overview: Added automatically from request for surgery [id number] Hematemesis 10/15/2017 GI bleed 10/15/2017 Iron deficiency anemia, unspecified iron deficiency anemia type 10/14/2017 Overview: Added automatically from request for surgery [id number] Hematemesis, presence of nausea not specified 10/14/2017 Overview: Added automatically from request for surgery [id number] Other iron deficiency anemia 03/15/2017 Overview: Added automatically from request for surgery [id number] Anemia 03/14/2017 documented as of this encounter [...] file Gets together: Not on file Attends caodaism service: Not on file Active member of [...] file Social History Narrative Worked in the [employer] Family History Problem Relation Age of Onset [...] BOX Medicare A & B nt [id number] NATALIE BOATENG [address] [facility] [id number] 2016-Paula LI [employer] nt documented as of this encounter
--- OUTSIDE RECORDS SUMMARY | 2018-10-23 18:30 | XMS REPORT | Summary of Care ---
:1955 Author Organization [facility] Address [address] [place] [address] Care Team Providers Name Role Phone Junito Delong MD Primary Care Provider Reason for Visit Reason Comments Follow-up Labs Encounter Details Date Type Department Care Team Description 10/11/2018 Office Visit [facility] Family Junito Delong Hepatitis C virus infection without hepatic coma, unspecified chronicity (Primary Dx); Medicine - Yuni Lucero MD Type 2 diabetes mellitus without complication, without long-term current use of insulin [facility] [address] [place] [address] [address], [place] [phone] Allergies No Known Allergiesdocumented as of this [...] Overview: Added automatically from request for surgery [id number] Hematemesis 10/15/2017 GI bleed 10/15/2017 Iron deficiency anemia, unspecified iron deficiency anemia type 10/14/2017 Overview: Added automatically from request for surgery [id number] Hematemesis, presence of nausea not specified 10/14/2017 Overview: Added automatically from request for surgery [id number] Other iron deficiency anemia 03/15/2017 Overview: Added automatically from request for surgery [id number] Anemia 03/14/2017 documented as of this encounter [...] file Gets together: Not on file Attends gnosticist service: Not on file Active member of [...] file Social History Narrative Worked in the [employer] Family History Problem Relation Age of Onset [...] BOX Medicare A & B nt [id number] NATALIE BOATENG [phone] [facility] [id number] 2016-Paula LI [employer] nt documented as of this encounter
--- OUTSIDE RECORDS SUMMARY | 2018-10-23 18:31 | XMS REPORT | Summary of Care ---
:1955 Author Organization [facility] Address [address] [place] [address] Care Team Providers Name Role Phone Junito Delong MD Primary Care Provider Reason for Visit Reason Comments Follow-up Encounter Details Date Type Department Care Team Description 10/22/[address] [facility] Family Junito Delong Acute chest wall pain Medicine - Yuni Lucero MD (Primary Dx) [facility] [address] [place] [address] [address], [place] [id number] [phone] Allergies No Known Allergiesdocumented as of this encounter (statuses as of 10/22/2018) Medications Medication Sig Dispensed Refills Start End Date Status Date sucralfate 1 gram Take 1 tablet 120 tablet 11 Active tablet by mouth 4 8 (four) times daily. metFORMIN 1,000 mg Take 1 tablet 30 tablet 2 Active tablet by mouth 2 8 (two) times daily with meals. pantoprazole 40 mg EC Take 1 tablet 30 tablet 3 Active tabletIndications: by mouth daily. 9 Gastroesophageal reflux disease, esophagitis presence not specified FUROSEMIDE 20 mg TAKE 1 TABLET 90 tablet 0 Active tablet BY MOUTH DAILY 9 SPIRONOLACTONE 100 mg TAKE 1 TABLET 90 tablet 0 Active tablet BY MOUTH DAILY 9 traMADol (ULTRAM) 50 Take 1 tablet 9 tablet 0 Active mg tabletIndications: by mouth every 9 Acute chest wall pain 8 (eight) hours as needed for Pain (scale 4-6). acetaminophen Take 3 tablets 60 tablet 0 10/25/19 Active (TYLENOL) 325 mg by mouth 4 9 19 tabletIndications: (four) times Acute chest wall pain daily for 5 days. This is the maximum safe dose for a healthy adult. ranitidine (ZANTAC) Take 1 tablet 30 tablet 1 Active 150 mg by mouth 2 9 tabletIndications: (two) times Acute chest wall pain daily. Follow up with your MD for further evaluation and treatment. ibuprofen 600 mg Take 1 tablet 60 tablet 1 Active tabletIndications: by mouth 4 9 Acute chest wall pain (four) times daily as needed for Pain (scale 4-6). ibuprofen 600 mg Take 1 tablet 10 tablet 0 10/23/19 Discontinued tabletIndications: by mouth 4 9 19 Acute chest wall pain (four) times daily as needed for Pain (scale 4-6) for up to 5 days. documented as of this encounter (statuses as of 10/22/2018) Active Problems Problem Noted Date Gastrointestinal hemorrhage with hematemesis 10/24/2017 Overview: Added automatically from request for surgery [id number] Hematemesis 10/15/2017 GI bleed 10/15/2017 Iron deficiency anemia, unspecified iron deficiency anemia type 10/14/2017 Overview: Added automatically from request for surgery [id number] Hematemesis, presence of nausea not specified 10/14/2017 Overview: Added automatically from request for surgery [id number] Other iron deficiency anemia 03/15/2017 Overview: Added automatically from request for surgery [id number] Anemia 03/14/2017 documented as of this encounter (statuses as of 10/22/2018) Social History Tobacco Use Types Packs/Day Years [...] Sign Reading Time Taken Comments Blood Pressure 119/74 10/22/2018 9:32 AM CDT Pulse 113 10/22/2018 9:32 AM CDT Temperature 36.4 C (97.6 F) 10/22/2018 9:32 AM CDT Respiratory Rate 18 10/22/2018 9:32 AM CDT Oxygen Saturation 99% 10/22/2018 9:32 AM CDT Inhaled Oxygen Concentration - - Weight 84.8 kg (187 lb) 10/22/2018 9:32 AM CDT Height 177.8 cm (5' 10") 10/22/2018 9:32 AM CDT Body Mass Index 26.83 10/22/2018 9:32 AM CDT documented in this encounter Progress Notes Junito Delong MD - 10/22/2018 11:15 AM CDT CC: follow up chest wall pain Yoan is a 63 year old male Seen in ER for right chest wall pain No Known Allergies Current Outpatient Medications Medication Sig Dispense Refill ibuprofen 600 mg tablet Take 1 tablet by mouth 4 (four) times daily as needed for Pain (scale 4-6). 60 tablet 1 acetaminophen (TYLENOL) 325 mg tablet Take 3 tablets by mouth 4 (four) times daily for 5 days. This is the maximum safe dose for a healthy adult. 60 tablet 0 ranitidine (ZANTAC) 150 mg tablet Take 1 tablet by mouth 2 (two) times daily. Follow up with your MD for further evaluation and treatment. 30 tablet 1 traMADol (ULTRAM) 50 mg tablet Take 1 tablet by mouth every 8 (eight) hours as needed for Pain (scale 4-6). 9 tablet 0 pantoprazole 40 mg EC tablet Take 1 [...] History: Diagnosis Date Alcoholic cirrhosis Asbestosis 2016 Diabetes Esophageal varices HCV (hepatitis C virus) [...] Endoscopy ([facility]) OR Location [facility] 2012 Social History Socioeconomic History Marital status: Spouse [...] file Gets together: Not on file Attends hoahaoism service: Not on file Active member of [...] file Social History Narrative Worked in the [employer] Family History Problem Relation Age of Onset Alzheimers dementia Father Review of Systems BP 119/74 (BP Location: Right arm, Patient Position: Sitting, BP CUFF SIZE: Adult Medium) | Pulse 113 | Temp 36.4 C (97.6 F) (Oral) | Resp 18 | Ht 5 ' 10" (1.778 m) | Wt 187 lb (84.8 kg) | SpO2 99% | BMI 26.83 kg/m Physical Exam Constitutional: He is oriented [...] no wheezes.He has no rales. He exhibits tenderness (right side over medial clavicle). Abdominal: Soft. Bowel sounds are normal. He exhibits no distension and no mass. There is no tenderness. There is no rebound and no guarding. Musculoskeletal: Normal range of motion. He exhibits no edema or tenderness. Lymphadenopathy: He has no cervical adenopathy. Neurological: He is alert and oriented to person, place, and time. Skin: Skin is warm and dry. Diagnosis: 1. Acute chest wall pain ibuprofen 600 mg tablet Follow up: prn Patient Care Team: Junito [...] 10/15/2017, 10/15/2017, Additional history exists CREATININE (SERUM) 10/20/2019 10/19/2018, 09/11/2018, 10/17/2017, Additional history exists COLONOSCOPY 03/17/2027 03/17/2017 HEPATITIS C (HCV) SCREEN Completed 03/14/2017 documented as of this encounter Results Not on filedocumented in this encounter Visit Diagnoses Diagnosis Acute chest wall pain - Primary Painful respiration documented in this encounter Insurance Payer Benefit Plan / Subscriber ID Effective Phone Address Type Group Dates MEDICARE MEDICARE PART xxxxxxxxxxx 2018-Paula [phone] Medicare A & B nt [id number] [address] [place]ENG [phone] [facility] [id number] 2016-Paula LI [employer] nt documented as of this encounter
--- OUTSIDE RECORDS SUMMARY | 2018-10-23 18:31 | XMS REPORT | Summary of Care ---
:1955 Author Organization [facility] Address [address] [place] [address] Care Team Providers Name Role Phone Junito Delong MD Primary Care Provider Reason for Visit Reason Comments Follow-up Encounter Details Date Type Department Care Team Description 10/22/2018 Office Visit [facility] Family Junito Delong Acute chest wall pain Medicine - Yuni Lucero MD (Primary Dx) [facility] [address] [place] [address] [address], [place] [phone] Allergies No Known Allergiesdocumented as of this [...] Overview: Added automatically from request for surgery [id number] Hematemesis 10/15/2017 GI bleed 10/15/2017 Iron deficiency anemia, unspecified iron deficiency anemia type 10/14/2017 Overview: Added automatically from request for surgery [id number] Hematemesis, presence of nausea not specified 10/14/2017 Overview: Added automatically from request for surgery [id number] Other iron deficiency anemia 03/15/2017 Overview: Added automatically from request for surgery [id number] Anemia 03/14/2017 documented as of this encounter [...] file Gets together: Not on file Attends christian service: Not on file Active member of [...] file Social History Narrative Worked in the [employer] Family History Problem Relation Age of Onset [...] BOX Medicare A & B nt [id number] [address]ENG [phone] [facility] [id number] 2016-Paula LI [employer] nt documented as of this encounter
--- OUTSIDE RECORDS SUMMARY | 2018-10-23 18:31 | XMS REPORT | Summary of Care ---
:1955 Author Organization [facility] Address [address] [place] [address] Care Team Providers Name Role Phone Junito Delong MD Primary Care Provider Reason for Referral Radiology Services (STAT) Status Reason Specialty Diagnoses / Referred By Referred To Procedures Contact Contact New Request Diagnostic Diagnoses Acute chest wall pain Jodee Hadley Radiology Procedures XR CHEST 1 VW III, PA [address] [place] [address] [place] [address] Radiology Services (STAT) Status Reason Specialty Diagnoses / Referred By Referred To Procedures Contact Contact New Request Diagnostic Diagnoses Acute chest wall pain Jodee Hadley Radiology Procedures XR CHEST 1 VW III, PA [address] [place] [address] [place] [address] Reason for Visit Reason Comments Chest wall pain Neck Pain Auth/Cert Status Reason Specialty Diagnoses / Referred By Referred To Procedures Contact Contact [facility] [address] [place] [address] [place] [address] Encounter Details Date Type Department Care Team Description 10/19/2018 Emergency [facility] Jodee Hadley III, Acute chest wall pain Department PA (Primary Dx) [address] [place] [address] [place] [address] [place] [address] [place] [address] [phone] Allergies No Known Allergiesdocumented as of this encounter (statuses as of 10/19/2018) Medications Medication Sig Dispensed Refills Start End [...] maximum safe dose for a healthy adult. ibuprofen 600 mg Take 1 tablet 10 tablet 0 10/25/19 Active tabletIndications: by mouth 4 9 19 Acute chest wall pain (four) times daily as needed for Pain (scale 4-6) for up to 5 days. ranitidine (ZANTAC) Take 1 tablet 30 tablet 1 Active 150 mg by mouth 2 9 tabletIndications: (two) times Acute chest wall pain daily. Follow up with your MD for further evaluation and treatment. ranitidine (ZANTAC) Take 1 tablet 30 tablet 1 10/20/19 Discontinued 150 mg by mouth 2 9 19 tabletIndications: (two) times Acute chest wall pain daily. Follow up with your MD for further evaluation and treatment. documented as of this encounter (statuses as of 10/19/2018) Active Problems Problem Noted Date Gastrointestinal hemorrhage with hematemesis 10/24/2017 Overview: Added automatically from request for surgery [id number] Hematemesis 10/15/2017 GI bleed 10/15/2017 Iron deficiency anemia, unspecified iron deficiency anemia type 10/14/2017 Overview: Added automatically from request for surgery [id number] Hematemesis, presence of nausea not specified 10/14/2017 Overview: Added automatically from request for surgery [id number] Other iron deficiency anemia 03/15/2017 Overview: Added automatically from request for surgery [id number] Anemia 03/14/2017 documented as of this encounter (statuses as of 10/19/2018) Social History Tobacco Use Types Packs/Day Years [...] Sign Reading Time Taken Comments Blood Pressure 150/87 10/19/2018 8:00 PM CDT Pulse 94 10/19/2018 8:00 PM CDT Temperature 36.7 C (98.1 F) 10/19/2018 5:53 PM CDT Respiratory Rate 11 10/19/2018 8:00 PM CDT Oxygen Saturation 96% 10/19/2018 8:00 PM CDT Inhaled Oxygen Concentration - - Weight 83.9 kg (185 lb) 10/19/2018 5:53 PM CDT Height 180.3 cm (5' 11") 10/19/2018 5:53 PM CDT Body Mass Index 25.8 10/19/2018 5:53 PM CDT documented in this encounter Discharge Instructions Jodee Hickman III, PA - 10/19/2018 @@@@@@@@@@@@@@@@@@@@@@@@@@@@@@@@@@@@@@@@@@@@@@@@@@@@@ [facility] RETURN TO WORK / SCHOOL EXCUSE Yoan Monterroso WAS SEEN IN THE ER AND DISCHARGED 10/19/2018 TODAY, 8:38 PM & May return to Work / School / Incarceration on 10/20/18 with No limitations unless indicated below. ___The following limitations apply until pt is seen by Physician and cleared to return to normal activity. ___ Light duty ___ No Sports ___ No work ___ Do not return until fever free for 24 hours. ___ No school Garrick Hadley PA-C [facility] [address] [place] [address] [place] [address] If you are unprepared to return to work tomorrow due to pain please give this note to your employer and make a follow up appointment with your MD for further evaluation and limitations. ### The patient may have been given Narcotic pain medications during their stay in the ED that may show up on a Drug Screen. The hospital discharge paper work will identify these medications. @@@@@@@@@@@@@@@@@@@@@@@@@@@@@@@@@@@@@@@@@@@@@@@@@@@@@ Thank you for trusting us with your care. The emergency room is the first stop in the medical management of your complaint . Our primary pupose is to identify life threatening emergancies and to rapidly address those issues. We are releasing you today after evaluation for emergency or life threatening problems related to your complaint. At this time we are comfortable that your condition is stable enough to go home, take oral medications and follow up for further care. If you can't afford a doctor OR MEDICATIONS consider Clinic [facility], [address] [place] [address]; [phone] Medications [employer] [employer] WILL SHOW YOU WHERE YOU CAN GET YOUR MEDICATIONS CHEAPEST. 1. Call your doctor and let them know you were seen for ICD-10-CM ICD-9-CM 1. Acute chest wall pain R07.89 786.52 2. Schedule a follow up within 3 days of your ER visit. 3. Take your prescriptions to the pharmacy and get them filled today. 4. Take the medications as prescribed and until completed. 5. You have been referred for further care 6. You may need additional tests Your doctors will help you figure out what you need and how to get them done. 7. Please read all paperwork provided to you. Additional instructions See Attached documented in this encounter Plan of Treatment [...] Completed 03/14/2017 documented as of this encounter Procedures Procedure Name Priority Date/Time Associated Comments Diagnosis XR CHEST 1 VW STAT 10/19/2018 7:06 Acute chest wall Results for this PM CDT pain procedure are in the results section. CBC WITH DIFFERENTIAL STAT 10/19/2018 6:51 Acute chest wall Results for this PM CDT pain procedure are in the results section. N-TERMINAL PRO-BNP STAT 10/19/2018 6:51 Acute chest wall Results for this PM CDT pain procedure are in the results section. ACTIVATED PARTIAL STAT 10/19/2018 6:51 Acute chest wall Results for this THRMPLAS ARIA PM CDT pain procedure are in the results section. D-DIMER STAT 10/19/2018 6:51 Acute chest wall Results for this PM CDT pain procedure are in the results section. PROTHROMBIN TIME / STAT 10/19/2018 6:51 Acute chest wall Results for this INR PM CDT pain procedure are in the results section. CBC WITH DIFF Routine 10/19/2018 6:51 Acute chest wall Results for this PM CDT pain procedure are in the results section. COMP. METABOLIC PANEL STAT 10/19/2018 6:51 Acute chest wall Results for this (58761) PM CDT pain procedure are in the results section. TROPONIN I STAT 10/19/2018 6:51 Acute chest wall Results for this PM CDT pain procedure are in the results section. EKG-12 LEAD STAT 10/19/2018 6:44 PM CDT NOTICE OF PRIVACY Routine 10/19/2018 5:48 PRACTICES PM CDT CONSENT/REFUSAL FOR Routine 10/19/2018 5:47 DIAGNOSIS AND PM CDT TREATMENT documented in this encounter Results XR CHEST 1 VW (10/19/2018 7:06 PM CDT) Specimen Impressions Performed At PACS/VR/DOSE No acute cardiopulmonary abnormality is present Ainsley Caraballo MD., have reviewed this study and agree with the above report. Narrative Performed At XR CHEST 1 VW PACS/VR/DOSE HISTORY: chest wall pain COMPARISON: None available FINDINGS: The lungs are clear. No focal consolidation is present. No pleural effusion or pneumothorax is present. The cardiomediastinal silhouette is normal. The osseous structures are unremarkable. Procedure Note [facility], Radiant Results Inft User - 10/19/2018 8:54 PM CDT XR CHEST 1 VW HISTORY: chest wall pain COMPARISON: None available FINDINGS: The lungs are clear. No focal consolidation is present. No pleural effusion or pneumothorax is present. The cardiomediastinal silhouette is normal. The osseous structures are unremarkable. IMPRESSION No acute cardiopulmonary abnormality is present IMegan MD., have reviewed this study and agree with the above report. Performing Organization Address City/State/Zipcode Phone Number PACS/VR/DOSE CBC WITH DIFFERENTIAL (10/19/2018 6:51 PM CDT) WBC 11.32 (H) 4.20 - 10.70 [facility] 10*3/L [facility] RBC 4.84 4.26 - 5.52 [facility] 10*6/L [facility] HGB 15.1 12.2 - 16.4 [facility] g/dL [facility] HCT 43.6 38.4 - 49.3 % [facility] MCV 90.1 81.7 - 95.6 [facility] LABORATORY MCH 31.2 26.1 - 32.7 [facility] LABORATORY MCHC 34.6 31.2 - 35.0 [facility] g/dL HOSPITAL LABORATORY RDW-SD 44.8 38.5 - 51.6 [facility] LABORATORY RDW-CV 13.5 12.1 - 15.4 % [facility] PLT 67 (L)Comment: 150 - 328 [facility] consistent with 10*3/L HOSPITAL patient history LABORATORY MPV 10.1 9.8 - 13.0 fL [facility] IPF % 2.0Comment: Platelet 1.2 - 10.7 % [facility] count measured by HOSPITAL fluorescence method. LABORATORY NRBC/100 WBC 0.0 0.0 - 10.0 [facility] /100 WBCs [facility] NRBC x10^3 <0.01 10*3/L [facility] GRAN MAT (NEUT) % 80.1 % [facility] IMM GRAN % 0.30 % [facility] LYMPH % 8.2 % [facility] MONO % 11.2 % [facility] EOS % 0.1 % [facility] BASO % 0.1 % [facility] GRAN MAT 9.07 (H) 1.99 - 6.95 [facility] x10^3(ANC) 10*3/uL [facility] IMM GRAN x10^3 0.03 0.00 - 0.06 [facility] 10*3/uL [facility] LYMPH x10^3 0.93 (L) 1.09 - 3.23 [facility] 10*3/uL [facility] MONO x10^3 1.27 (H) 0.36 - 1.02 [facility] 10*3/uL [facility] EOS x10^3 <0.03 (L) 0.06 - 0.53 [facility] 10*3/uL [facility] BASO x10^3 <0.03 0.01 - 0.09 [facility] 10*3/uL [facility] Specimen Blood - VENOUS Performing Organization Address City/[facility] Phone Number [facility] CLIA: [id number], [address] [place] [address] N-TERMINAL PRO-BNP (10/19/2018 6:51 PM CDT) NT-proBNP 188 (H) <=125 pg/mL [facility] Specimen Blood - VENOUS Narrative Performed At Biotin has been reported to cause a negative [facility] bias, interpret results relative to patient's use of biotin. Performing Organization Address City/[facility] Phone Number [facility] CLIA: [id number], [address] [place] [address] PROTHROMBIN TIME / INR (10/19/2018 6:51 PM CDT) PROTIME PATIENT 14.2 12.0 - 14.7 [facility] LABORATORY INR 1.2Comment: Normal [facility] INR <1.1; Warfarin [facility] Therapeutic range LABORATORY 2.0 to 3.0 or 2.5 to 3.5, depending upon the indications. Specimen Blood - VENOUS Performing Organization Address [facility] Phone Number [facility] CLIA: [id number], [address] [place] [address] TROPONIN I (10/19/2018 6:51 PM CDT) TROPONIN I <0.012 <=0.034 ng/mL [facility] Specimen Blood - VENOUS Narrative Performed At Equal or Less than 0.034 ng/ml---Normal [facility] Note: Cardiac troponin begins to rise 3-4 hours after the onset of ischemia. Repeat in 4-6 hours if the sample was drawn within 3-4 hours of the onset of the symptom and found normal. Between 0.035 and 0.120 ng/mL--- Borderline. Questionable myocardial injury or necrosis Note: Serial measurement may be necessary to confirm or exclude the diagnosis of myocardial injury or necrosis; Clinical correlation (symptoms, EKGs, imaging studies, and others) required; Repeat in 4-6 hours if clinically indicated. Equal or Higher than 0.121 ng/mL---Abnormal. Myocardial Injury or Necrosis Likely Biotin has been reported to cause a negative bias, interpret results relative to patient's use of biotin. Performing Organization Address [facility] Phone Number [facility] CLIA: [id number], [address] [place] [address] D-DIMER (10/19/2018 6:51 PM CDT) D-DIMER 0.35 <0.41 g/mL (FEU) [facility] Specimen Blood - VENOUS Narrative Performed At This test may be used in conjunction with a [facility] clinical pretest probability (PTP) assessment model to exclude pulmonary embolism (PE) and as an aid in the diagnosis of deep venous thrombosis (DVT) in outpatients suspected of PE or DVT. A D-Dimer value less than 0.50 g/ml (FEU) has a negative predicative value of 98 to 100% (95% CI) for the exclusion of pulmonary embolism (PE) and 95 to 100% (95% CI) as an aid in the diagnosis of deep vein thrombosis (DVT) when there is low or moderate pretest probability of PE or DVT. D-Dimer values are expressed in initial fibrinogen equivalent units (FEU). Performing Organization Address City/State/Zipcode Phone Number [facility] CLIA: [id number], [address] [place] [address] COMP. METABOLIC PANEL (22420) (10/19/2018 6:51 PM CDT) NA 142 135 - 145 [facility] mmol/L [facility] K 4.7 3.5 - 5.0 [facility] mmol/L [facility] CL 101 98 - 108 mmol/L [facility] CO2 TOTAL 28 23 - 31 mmol/L [facility] AGAP 13 2 - 16 [facility] BUN 17 7 - 23 mg/dL [facility] GLUCOSE 175 (H) 70 - 110 mg/dL [facility] CREATININE 0.92 0.60 - 1.25 [facility] mg/dL [facility] TOTAL BILI 2.4 (H) 0.1 - 1.1 mg/dL [facility] CALCIUM 9.3 8.6 - 10.6 [facility] mg/dL [facility] T PROTEIN 9.0 (H) 6.3 - 8.2 g/dL [facility] ALBUMIN 4.4 3.5 - 5.0 g/dL [facility] ALK PHOS 142 (H) 34 - 122 U/L [facility] ALT(SGPT) 91 (H) 9 - 51 U/L [facility] AST(SGOT) 66 (H) 13 - 40 U/L [facility] eGFR Calculation 82.6 mL/min/1.73m2 [facility] ([facility] LABORATORY [place]) eGFR Calculation 100.1 mL/min/1.73m2 [facility] () [facility] Specimen Blood - VENOUS Narrative Performed At Association of Glomerular Filtration Rate (GFR) [facility] and Staging of Kidney Disease* + + +- + | GFR (mL/min/1.73 m2)| With Kidney Damage|Without Kidney Damage + + +- + |>90| Stage one| Normal + + +- + |60-89|S tage two| Decreased GFR + + +- + |30-59|S tage three| Stage three + + +- + |15-29|S tage four | Stage four + + +- + |<15 (or dialysis)|Stage five | Stage five + + +- + *Each stage assumes the associated GFR level has been in effect for at least three months.Stages 1 to 5, with or without kidney disease, indicate chronic kidney disease. Notes: Determination of stages one and two (with eGFR >59mL/min/1.73 m2) requires estimation of kidney damage for at least three months as defined by structural or functional abnormalities of the kidney, manifested by either: Pathological abnormalities or Markers of kidney damage (including abnormalities in the composition of the blood or urine or abnormalities in imaging tests). Performing Organization Address City/State/Zipcode Phone Number [facility] CLIA: [id number], [address] [place] [address] aPTT (10/19/2018 6:51 PM CDT) [facility] APTT Patient 36 23 - 38 Seconds [facility] Specimen Blood - VENOUS Narrative Performed At The [facility] patient population mean normal value [facility] for aPTT is 30 seconds. Performing Organization Address City/State/Zipcode Phone Number [facility] CLIA: [id number], [address] [place] [address] documented in this encounter Visit Diagnoses Diagnosis Acute chest wall pain - Primary Painful respiration documented in this encounter Administered Medications Medication Order MAR Action Action Date Dose Rate Site ketorolac (TORADOL) injection 15 Given 10/19/2018 8:54 PM CDT 15 mg mg 15 mg, Slow IV Push, ONCE, 1 dose, Mon10/19/18 at 2145, LINDA, space studies faculty member approving Restricted medication: JODEE HADLEY III morpHINE injection 4 mg Given 10/19/2018 7:34 PM CDT 4 mg 4 mg, Slow IV Push, ONCE, 1 dose, Mon10/19/18 at 2030, STAT NaCl 0.9% (NS) bolus infusion New Bag 10/19/2018 7:13 PM CDT 1,000 mL 999 mL/hr 1,000 mL at 999 mL/hr, 1,000 mL, IV Infusion, ONCE, 1 dose, Mon10/19/18 at 1845, STAT ondansetron (ZOFRAN (PF)) injection 4 mg Given 10/19/2018 7:34 PM CDT 4 mg 4 mg, Slow IV Push, ONCE, 1 dose, Mon10/19/18 at 2030, LINDA traMADol (ULTRAM) tablet 50 mg Given 10/19/2018 8:53 PM CDT 50 mg 50 mg, Oral, ONCE NOW, 1 dose, Mon10/19/18 at 2145, Routine documented in this encounter Insurance Payer Benefit Plan / Subscriber ID Effective Phone Address Type Group Dates MEDICARE MEDICARE PART xxxxxxxxxxx 2018-Paula [phone] Medicare A & B nt [id number] NATALIE BOATENG [phone] [facility] [id number] 2016-Paula LI RUTH [employer] INSURANCE nt documented as of this encounter
--- OUTSIDE RECORDS SUMMARY | 2018-10-23 18:31 | XMS REPORT | Summary of Care ---
:1955 Author Organization [facility] Address [address] [place] [address] Care Team Providers Name Role Phone Junito Delong MD Primary Care Provider Reason for Visit Reason Comments Follow-up Encounter Details Date Type Department Care Team Description 10/22/2018 Office Visit [facility] Family Junito Delong Acute chest wall pain Medicine - Yuni Lucero MD (Primary Dx) [facility] [address] [place] [address] [address], [place] [id number] [phone] Allergies No Known Allergiesdocumented as of this [...] Overview: Added automatically from request for surgery [id number] Hematemesis 10/15/2017 GI bleed 10/15/2017 Iron deficiency anemia, unspecified iron deficiency anemia type 10/14/2017 Overview: Added automatically from request for surgery [id number] Hematemesis, presence of nausea not specified 10/14/2017 Overview: Added automatically from request for surgery [id number] Other iron deficiency anemia 03/15/2017 Overview: Added automatically from request for surgery [id number] Anemia 03/14/2017 documented as of this encounter [...] file Gets together: Not on file Attends taoist service: Not on file Active member of [...] file Social History Narrative Worked in the [employer] Family History Problem Relation Age of Onset [...] BOX Medicare A & B nt [id number] NATALIE BOATENG [phone] [facility] [id number] 2016-Paula LI [employer] INSURANCE nt documented as of this encounter
[2018-10-23] MEDS ORDERED: NA CHLORIDE 0.9% 1,000 ML ONE ×2 (19:13→20:17)
[2018-10-23 19:24] LABS: Absolute Lymphocytes (CBC) 0.3 K/uL (0.7-4.9); Basophils % 0.2 % (0-1.3); Hematocrit 49.7 % (39.6-49.0); Lymphocytes % 1.8 % (15.3-44.8); MPV 9.7 fL (7.6-11.3); Protime INR 1.12; RBC Red Blood Cell Count 5.21 M/uL (4.33-5.43)
[2018-10-23 19:46] LABS: Albumin 2.6 g/dL (3.4-5.0); Bilirubin Direct 1.2 mg/dL (0-0.2); Bilirubin Total 1.9 mg/dL (0.2-1.0); Magnesium 3.2 mg/dL (1.8-2.4); Potassium 5.4 mmol/L (3.5-5.1); Protein, Total 7.7 g/dL (6.4-8.2)
[2018-10-23 19:49] LABS: Troponin I 3.43 ng/mL (0.0-0.045)
--- NOTE | 2018-10-23 19:55 | RAD REPORT ---
EXAM DESCRIPTION: RAD - Chest Single View - 10/23/2018 7:44 pm CLINICAL HISTORY: r/o pneumonia Chest pain. COMPARISON: Abdomen Acute Series dated 10/14/2017 FINDINGS: Portable technique limits examination quality. The lungs are grossly clear. The heart is normal in size. No displaced fractures. IMPRESSION: No acute intrathoracic process suspected.
[2018-10-23] MEDS ORDERED: NA CHLORIDE 0.9% 250 ML ONE (20:17)
[2018-10-23] MEDS ORDERED: NA CHLORIDE 0.9% 100 ML IV ONE (20:17)
[2018-10-23] MEDS ORDERED: CEFEPIME 2 GM VIAL ONE (20:17)
[2018-10-23] MEDS ORDERED: D50W 25 GM/50 ML SYRINGE IV ONE (20:17)
[2018-10-23] MEDS ORDERED: VANCOMYCIN 1 GM/VIAL ONE (20:17)
[2018-10-23] MEDS ORDERED: INSULIN -REGULAR HUMAN 50 UNIT/0.5 ML ML ONE (20:19)
[2018-10-23] MEDS ORDERED: Caclcium Chloride 10% INJ SYR IV ONE (20:19)
[2018-10-23] MEDS ORDERED: NA CHLORIDE 0.9% 50 ML IV ONE (20:20)
[2018-10-23 20:23] LABS: Urine Blood 3+ (NEG); Urine Glucose NEGATIVE (NEG); Urine Protein 2+ (NEG); Urine Specific Gravity >1.030 (1.005-1.030)
[2018-10-23] MEDS ORDERED: LEVALBUTEROL 1.25 MG/3 ML NEB ONE (20:25)
[2018-10-23] MEDS ORDERED: dilTIAZem HCl 25 MG/5 ML VIAL IV ONE (20:31)
--- NOTE | 2018-10-23 20:32 | RAD REPORT ---
EXAM DESCRIPTION: CT - Chest Abd Pelvis Wo Con - 10/23/2018 8:12 pm CLINICAL HISTORY: Chest and abdomen pain. sepsis, dyspnea, abdominal pain COMPARISON: Chest Single View dated 10/23/2018 TECHNIQUE: Limited noncontrast examination was performed. All CT scans are performed using dose optimization technique as appropriate and may include automated exposure control or mA/KV adjustment according to patient size. FINDINGS: The lungs are clear.No pleural or pericardial effusion.No intrathoracic adenopathy. The liver, spleen, pancreas, adrenal glands and kidneys are within normal limits. Cholecystectomy. No bowel obstruction, free air, free fluid or abscess. Postsurgical changes are present about the sto mach and small bowel. Mild sigmoid diverticulosis coli without diverticulitis. The appendix is not id entified as a discrete structure, however, no secondary findings of appendicitis are identified. Ath erosclerosis. No pathologic lymphadenopathy in the abdomen or pelvis. No acute spinal fracture. Prominent spondylosis at L2-3. IMPRESSION: No acute process identified.
[2018-10-23] MEDS ORDERED: SODIUM BICARB 50 MEQ/50ML VIAL ONE ×2 (20:33→20:41)
[2018-10-23] MEDS ORDERED: NACHLORIDE 0.45% 1,000 ML IV ONE (20:41)
[2018-10-23 20:51] LABS: Urine Amorphous Sediment 4+ /HPF (NONE SEEN); Urine Bacteria 20-50 /HPF (NONE SEEN); Urine Culture Reflex Order REFLEXED; Urine Mucus 3+ /HPF (NONE SEEN); Urine RBC 20-50 /HPF (NONE SEEN)
[2018-10-23 21:00] LABS: Blood Morphology Comment NOTED (NOT SEEN); Burr Cells 3+; Platelet Estimate DECR; Toxic Granulation 2+
[2018-10-23 21:26] LABS: Arterial Blood Carboxyhemoglob 0.1 % (0-1.5); Blood Gas Oxyhemoglobin 97.8 % (94-97)
[2018-10-23] MEDS ORDERED: ETOMIDATE 20 MG/10 ML VIAL IV ONE (21:41)
[2018-10-23] MEDS ORDERED: ROCURONIUM 50 MG/5 ML VIAL IV ONE (21:43)
[2018-10-23] MEDS ORDERED: NA CHLORIDE 0.9% 500 ML ONE (21:48)
[2018-10-23] MEDS ORDERED: PROPOFOL 1,000 MG/100 ML VIAL IV ONE (21:48)
[2018-10-23] MEDS ORDERED: NOREPINEPHRINE 4mg/D5W 250mL 4 MG/250 ML BAG IV ONE (21:49)
[2018-10-23] MEDS ORDERED: PROPOFOL 200 MG/20 ML VIAL IV ONE (21:49)
--- NOTE | 2018-10-23 21:58 | ER ---
Nurse's Notes [facility] Name: Yoan Monterroso Sr Age: 63 yrs Sex: Male : 1955 Arrival Date: 10/23/2018 Time: 18:32 Bed 4 Private MD: Diagnosis: Other specified sepsis-urosepsis;Non-ST elevation (NSTEMI) myocardial infarction;Acute kidney failure;Hypermagnesemia;Acidosis;Hyperkalemia Presentation: 10/23 18:37 Presenting complaint: EMS states: Syncopal episode fell at home, family couldn't get jl7 him up, he was diaphoretic on scene, EKG showed A. Fib RVR, Cardizem 20 mg given and IV Tylenol. Transition of care: patient was not received from another setting of care. Onset of symptoms was October 23, 2018. Risk Assessment: Do you want to hurt yourself or someone else? Patient reports no desire to harm self or others. Initial Sepsis Screen: Does the patient meet any 2 criteria? No. Patient's initial sepsis screen is negative. Does the patient have a suspected source of infection? No. Patient's initial sepsis screen is negative. Care prior to arrival: Medication(s) given: Cardizem 20 mg IV initiated. 20 GA, in the right hand. 18:37 Method Of Arrival: EMS: [facility] 18:37 Acuity: UMER 2 jl7 Historical: - Allergies: 18:41 No Known Allergies; jl7 - Home Meds: 18:41 Metformin Oral [Active]; Spironolactone Oral [Active]; pantoprazole oral oral [Active]; jl7 Furosemide Oral [Active]; - PMHx: 18:41 Diabetes - NIDDM; Hepatitis; Hypertension; jl7 - Immunization history:: Adult Immunizations unknown. - Ebola Screening: : No symptoms or risks identified at this time. - Social history:: Smoking status: unknown. Screenin:27 Abuse screen: Denies threats or abuse. Denies injuries from another. Nutritional rr5 screening: No deficits noted. Tuberculosis screening: No symptoms or risk factors identified. Fall Risk IV access (20 points). Gait- Weak (10 pts.). Mental Status- Oriented to own ability (0 pts). Total Collier Fall Scale indicates Low Risk Score (25-44 pts). Fall prevention measures have been instituted. Side Rails Up X 2 Placed close to Nursing Station Frequent Obs/Assesments occuring Family Present and informed to notify staff if they need to leave bedside As available Patient and Family Educated on Fall Prevention Program and strategies. Assessment: 19:20 General: Appears uncomfortable, ill, Behavior is calm, cooperative. Pain: Complains of rr5 pain in chest Pain does not radiate. Pain currently is 8 out of 10 on a pain scale. Quality of pain is described as aching, Pain began gradually, Is intermittent. 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 Cardiovascular: Capillary refill < 3 seconds Patient's skin is warm and dry. Rhythm is sinus tachycardia. Respiratory: Airway is patent Respiratory effort is even, Respiratory pattern is regular, symmetrical, tachypnea. GI: No signs and/or symptoms were reported involving the gastrointestinal system. 19:20 : No signs and/or symptoms were reported regarding the genitourinary system. EENT: No rr5 signs and/or symptoms were reported regarding the EENT system. Derm: Skin is fragile, is thin, Skin temperature is warm Wound noted right cheek and extremities. Musculoskeletal: Circulation, motion, and sensation intact. Capillary refill < 3 seconds, Swelling present in right supraclavicular area. 19:20 Derm: mottled skin noted. rr5 19:55 Reassessment: Patient appears in no apparent distress at this time. went to CT scan rr5 assisted by CT staff via stretcher. 20:00 Reassessment: vital signs taken and recorded. maintained on oxygen cannula at 4 rr5 liters/minute. 20:08 Reassessment: critical laboratory lactate 17, CPK 2883 jamey from laboratory called. ED rr5 provider aware. with order made and carried out. 20:55 Reassessment: ED provider with order and carried out. hooked to BIPAP and continuously rr5 monitored. 21:20 Reassessment: after the ABG result. reassess by ED provider with order for intubation. rr5 Respiratory: Airway Respiratory effort is labored, Respiratory pattern is tachypnea. 21:45 Reassessment: Jacqueline ESTRADA at bedside for intubation along with RTs Ronaldo and Aishwarya, bb RNs Deion Walter Ronaldo, and this RN. Pt's spouse remains at bedside. Pt intubated with 7.5 ETT 23 cm at the teeth with one attempt. NG tube 14 Fr placed to R nares to low intermittent suction. Central line to right femoral placed by Jacqueline ESTRADA. Pt tolerated well. 22:20 Reassessment: Heart rhythm converted to Sinus tachycardia. ED provider aware. rr5 22:20 Cardiovascular: Rhythm is sinus tachycardia. rr5 23:10 Reassessment: Patient appears in no apparent distress at this time. maintaining oxygen rr5 saturation 99-100% on ET connected to Mechanical ventilator. for transfer to ICU. Vital Signs: 18:41 BP 88 / 67; Pulse 125; Resp 34 S; Pulse Ox 98% on R/A; jl7 18:43 Weight 72.57 kg (R); jl7 18:57 BP 100 / 70; Pulse 121; Resp 37; Pulse Ox 99% ; jl7 19:28 BP 108 / 76; Pulse 129; Resp 29; Pulse Ox 99% ; rr5 19:28 Pulse Ox 4 lpm NC; rr5 19:33 Temp 98.7(A); rr5 20:00 BP 90 / 62; Pulse 139; Resp 29; Temp 98.5; Pulse Ox 100% on 4 lpm NC; rr5 20:30 BP 143 / 131; Pulse 147; Resp 34; Pulse Ox 98% on 15% Nebulizer Mask; rr5 21:00 BP 102 / 91; Pulse 119; Resp 29; Pulse Ox 100% on 15% Nebulizer Mask; rr5 21:30 BP 108 / 75; Pulse 125; Resp 30; Pulse Ox 99% on BiPAP; rr5 21:55 BP 129 / 23; Pulse 124; Resp 29; Pulse Ox 98% on BiPAP; bb 22:00 BP 143 / 117; Pulse 142; Resp 24; Pulse Ox 100% on BVM; bb 22:02 BP 80 / 50; Pulse 120; Resp 20; Pulse Ox 100% on BVM; bb 22:56 BP 122 / 76; Pulse 122; Resp 24 A; Temp 97.9(C); Pulse Ox 99% on 45% FiO2 ETT vent; bb 23:15 BP 115 / 70; Pulse 118; Resp 24; Temp 99.2; Pulse Ox 99% on 45% FiO2 ETT vent; rr5 23:30 BP 107 / 74; Pulse 118; Resp 24; Temp 99.4; Pulse Ox 99% on 45% FiO2 ETT vent; rr5 Quincy Coma Score: 19:28 Eye Response: spontaneous(4). Verbal Response: oriented(5). Motor Response: obeys rr5 commands(6). Total: 15. ED Course: 18:32 Patient arrived in ED. ag5 18:36 [facility] jr8 18:36 Ab Acharya MD is Attending Physician. jr8 18:40 Triage completed. jl7 18:41 Arm band placed on right wrist. jl7 19:00 Maintain EMS IV. Dressing intact. Site clean \T\ dry. Gauge \T\ site: received G 20 right rr 5 hand from EMS. Inserted saline lock: 22 gauge in left antecubital area, using aseptic technique. ,using aseptic technique. received from AM shift. 19:10 Deion Elkins RN is Primary Nurse. rr5 19:50 Notified Nurse Practitioner and/or Physician Apprentice Plumber of a critical lab result(s), bb Bicarb of 8, Troponin 3.43. Jacqueline ESTRADA notified. 20:10 Tirado cath inserted, using sterile technique, 16 Fr., by vt, balloon inflated, urine rr5 specimen collected. returned miller urine. Patient tolerated well. 20:[address] via stretcher. nj 20:12 CT completed. Patient tolerated procedure well. Patient moved back from CT. nj 20:23 CT Chest Abdomen Pelvis W/O Contrast In Process Unspecified. EDMS 20:28 Initial Neb Treatment Given as ordered Patient was instructed and evaluated on rr5 procedure Patient tolerated procedure well without adverse effect. 20:37 EKG done, by ED staff, reviewed by Teto ESTRADA. rr5 21:00 Repeat lab(s) drawn. by me, sent to lab. Second set of blood cultures drawn by me. rr5 21:34 John Duenas MD is Hospitalizing Provider. jr8 22:00 Assisted provider with intubation using 7.5 mm ETT via oral route. ET tube secured at bb 23cm at the teeth. Set up intubation tray. Intubated by Teto ESTRADA Placement verified by CXR, CO2 detector w/ + color change, auscultating bilateral breath sounds, Patient tolerated well. 22:04 Assisted provider with central line placement. Set up central line tray. Triple lumen bb line placed in right femoral. Line placed by Teto ESTRADA Placement verified by blood return, Dressed with Tegaderm, Patient tolerated well. 22:12 NGT: inserted 14 Fr. via right nare. verified placement of air over stomach, Placement bb verified by X-ray, to intermittent suction. Patient tolerated well. 22:30 Thermoregulation: Abe blanket applied. bb 22:40 Tirado cath inserted, using sterile technique, 16 Fr., by vt, balloon inflated, to bb gravity drainage, other used criticare tirado for continuous monitoring of temperature. 22:56 Patient has correct armband on for positive identification. personnel monitor on. Pulse bb ox on. NIBP on. 22:56 Patient admitted, IV remains in place. bb Administered Medications: 19:24 Drug: NS 0.9% (30 ml/kg) 30 ml/kg Route: IV; Rate: bolus; Site: left antecubital; rr5 20:58 Follow up: Response: No adverse reaction; IV Status: Completed infusion; IV Intake: rr5 2177ml 20:22 CANCELLED (Physician Discretion): NS 0.9% 1000 ml IV at 125 ml/hr continuous jr8 20:28 Drug: Xopenex (3) 1.25 mg Route: Inhalation; rr5 21:30 Follow up: Response: No adverse reaction rr5 20:30 Drug: D50W 50 ml Route: IVP; Site: right hand; rr5 21:33 Follow up: Response: No adverse reaction rr5 20:33 Drug: Insulin Regular Human 10 units {Co-Signature: bb (Thelma Valerio RN).} Route: rr5 IVP; Site: right hand; 21:33 Follow up: Response: No adverse reaction rr5 20:34 Drug: Cardizem 10 mg {Note: HR 147 bpm given by jaxon BAÑUELOS.} Route: IVP; Site: right hand; rr5 21:30 Follow up: Response: No adverse reaction rr5 20:37 Drug: Sodium Bicarbonate 1 amp {Note: given by jaxon BAÑUELOS.} Route: IVP; Site: right hand; rr5 21:40 Follow up: Response: No adverse reaction rr5 20:45 Drug: Calcium Chloride 500 mg Route: IVP; Site: right hand; rr5 21:45 Follow up: Response: No adverse reaction rr5 21:03 Drug: NS 0.45 % 1000 ml Route: IV; Rate: 100 ml/hr; Site: right hand; rr5 23:50 Follow up: Response: No adverse reaction; IV Status: Infusion continued upon admission; rr5 IV Intake: 300ml 21:05 Dru grams of (Cefepime 2 grams, NS 0.9% 100 ml) Route: IVPB; Rate: 200 ml/hr; rr5 Infused Over: 30 mins; Site: right hand; 21:35 Follow up: Response: No adverse reaction; IV Status: Completed infusion; IV Intake: rr5 100ml 21:55 Drug: Etomidate 10 mg Route: IVP; Site: left antecubital; bb 23:00 Follow up: Response: No adverse reaction rr5 21:56 Drug: Rocuronium 70 mg Route: IVP; Site: left antecubital; 23:00 Follow up: Response: No adverse reaction rr5 21:56 Drug: Levophed (4 mg/250 mL D5W 4 mcg/min Route: IV; Rate: calculated rate; Site: left bb antecubital; 22:05 Follow up: IV SiteChange: right femoral; IV SiteChange Reason: Infiltration; moved to central line no infiltration to left AC 23:50 Follow up: Response: No adverse reaction; IV Status: Infusion continued upon admission; rr5 IV Intake: 60ml 22:40 Drug: vancoMYCIN 1 grams Route: IVPB; Infused Over: 2 hrs; Site: left hand; rr5 23:50 Follow up: Response: No adverse reaction; IV Status: Infusion continued upon admission; rr5 IV Intake: 100ml Intake: 20:58 IV: 2177ml; Total: 2177ml. rr5 21:35 IV: 100ml; Total: 2277ml. rr5 23:50 IV: 60ml; Total: 2337ml. rr5 23:50 IV: 300ml; Total: 2637ml. rr5 23:50 IV: 100ml; Total: 2737ml. rr5 Ventilator: 22:04 Fi02: 50%; Rate: 24min; T.V.: 550ml; Peep: 5cm; ET tube: 7.5 mm; bb 22:50 Fi02: 45%; Rate: 24min; T.V.: 550ml; Peep: 5cm; rr5 Outcome: 21:40 Decision to Hospitalize by Provider. bernie 22:56 Instructed on the need for admit. bb 23:30 Admitted to ICU accompanied by nurse, via stretcher, room icu 3, with oxygen, on rr5 monitor, with chart, Report called to clarita 23:30 Condition: stable 23:52 Patient left the ED. rr5 Signatures: Dispatcher [employer] EDMS Thelma Valerio, RN RN bb Teto Schroeder PA PA jr8 Ruben Barrow Jahala, RN RN jl7 Deion Elkins RN RN rr5 Yonathan Garnett [facility] Thelma alvarado Corrections: (The following items were deleted from the chart) 10/24 00:53 10/23 21:30 BP 108 / 75; Pulse 125bpm; Resp 30bpm; Pulse Ox 99% 4 lpm Nasal Cannula; rr5rr5
--- NOTE | 2018-10-23 21:59 | EDPHYS ---
Physician Documentation [facility] Name: Yoan Monterroso Sr Age: 63 yrs Sex: Male : 1955 Arrival Date: 10/23/2018 Time: 18:32 Bed 4 Private MD: ED Physician Ab Acharya HPI: 10/23 22:40 This 63 yrs old Male presents to ER via EMS with complaints of Syncope. jr8 22:40 The patient has experienced syncope. Onset: The symptoms/episode began/occurred jr8 acutely, today. Duration: This was a single episode. 22:41 Context: the episode(s) was witnessed, by family, occurred at home, occurred while the jr8 patient was standing. Associated signs and symptoms: Pertinent positives: diaphoresis. The patient has not experienced similar symptoms in the past. The patient has been recently seen by a physician:. Son and of patient stated that he was in [place] ED several days ago for body pain. Was discharged home as muscle pain. Stated that today he had syncopal episode and could not get him off of floor. EMS stated that patient was in Atrial fib with RVR. Breathing difficulty and general weakness. Historical: - Allergies: 18:41 No Known Allergies; jl7 - Home Meds: 18:41 Metformin Oral [Active]; Spironolactone Oral [Active]; pantoprazole oral oral [Active]; jl7 Furosemide Oral [Active]; - PMHx: 18:41 Diabetes - NIDDM; Hepatitis; Hypertension; jl7 - Immunization history:: Adult Immunizations unknown. - Ebola Screening: : No symptoms or risks identified at this time. - Social history:: Smoking status: unknown. ROS: 22:41 Eyes: Negative for injury, pain, redness, and discharge, ENT: Negative for injury, jr8 pain, and discharge, Neck: Negative for injury, pain, and swelling, Cardiovascular: Negative for chest pain, palpitations, and edema, Abdomen/GI: Negative for abdominal pain, nausea, vomiting, diarrhea, and constipation, Back: Negative for injury and pain, MS/Extremity: Negative for injury and deformity, Skin: Negative for injury, rash, and discoloration. 22:41 Respiratory: Positive for dyspnea on exertion, shortness of breath. 22:41 Neuro: Positive for syncope, weakness. Exam: 22:41 Head/Face: Normocephalic, atraumatic. Eyes: Pupils equal round and reactive to light, jr8 extra-ocular motions intact. Lids and lashes normal. Conjunctiva and sclera are non-icteric and not injected. Cornea within normal limits. Periorbital areas with no swelling, redness, or edema. 22:41 Neck: Trachea midline, no thyromegaly or masses palpated, and no cervical lymphadenopathy. Supple, full range of motion without nuchal rigidity, or vertebral point tenderness. No Meningismus. Chest/axilla: Normal chest wall appearance and motion. Nontender with no deformity. No lesions are appreciated. Cardiovascular: Tachycardic with irregular rate with a normal S1 and S2. No gallops, murmurs, or rubs. Normal PMI, no JVD. No pulse deficits. 22:41 Abdomen/GI: Soft, non-tender, with normal bowel sounds. No distension or tympany. No guarding or rebound. No evidence of tenderness throughout. Back: No spinal tenderness. No costovertebral tenderness. Full range of motion. MS/ Extremity: Pulses equal, no cyanosis. Neurovascular intact. Full, normal range of motion. 22:41 Constitutional: The patient appears alert, awake, obviously ill, pale. 22:41 ENT: Exam is negative for nasal discharge, pharyngitis, tongue dry, mucous membranes dry. 22:41 Respiratory: mild respiratory distress is noted, Respirations: tachypnea, Breath sounds: are clear throughout. 22:41 Skin: Appearance: Color: pale, mottled , Temperature: cool. 22:41 Neuro: Orientation: to person, place \T\ time. Mentation: able to follow commands, slow to respond, Memory: immediate memory is intact, remote memory is intact. recent memory is intact, Cranial nerves: CN I not tested, CN II- XII are normal as tested, extraocular movements are intact, Speech is slowed, slurred, Tongue strength is normal, Motor: moves all fours, Sensation: is normal, Gait: not tested. seizure activity, is not displayed by the patient, Abnormal movements: there are no abnormal movements. Vital Signs: 18:41 BP 88 / 67; Pulse 125; Resp 34 S; Pulse Ox 98% on R/A; jl7 18:43 Weight 72.57 kg (R); jl7 18:57 BP 100 / 70; Pulse 121; Resp 37; Pulse Ox 99% ; jl7 19:28 BP 108 / 76; Pulse 129; Resp 29; Pulse Ox 99% ; rr5 19:28 Pulse Ox 4 lpm NC; rr5 19:33 Temp 98.7(A); rr5 20:00 BP 90 / 62; Pulse 139; Resp 29; Temp 98.5; Pulse Ox 100% on 4 lpm NC; rr5 20:30 BP 143 / 131; Pulse 147; Resp 34; Pulse Ox 98% on 15% Nebulizer Mask; rr5 21:00 BP 102 / 91; Pulse 119; Resp 29; Pulse Ox 100% on 15% Nebulizer Mask; rr5 21:30 BP 108 / 75; Pulse 125; Resp 30; Pulse Ox 99% on BiPAP; rr5 21:55 BP 129 / 23; Pulse 124; Resp 29; Pulse Ox 98% on BiPAP; bb 22:00 BP 143 / 117; Pulse 142; Resp 24; Pulse Ox 100% on BVM; bb 22:02 BP 80 / 50; Pulse 120; Resp 20; Pulse Ox 100% on BVM; bb 22:56 BP 122 / 76; Pulse 122; Resp 24 A; Temp 97.9(C); Pulse Ox 99% on 45% FiO2 ETT vent; bb 23:15 BP 115 / 70; Pulse 118; Resp 24; Temp 99.2; Pulse Ox 99% on 45% FiO2 ETT vent; rr5 23:30 BP 107 / 74; Pulse 118; Resp 24; Temp 99.4; Pulse Ox 99% on 45% FiO2 ETT vent; rr5 Raine Coma Score: 19:28 Eye Response: spontaneous(4). Verbal Response: oriented(5). Motor Response: obeys rr5 commands(6). Total: 15. Ventilator: 22:04 Fi02: 50%; Rate: 24min; T.V.: 550ml; Peep: 5cm; ET tube: 7.5 mm; bb 22:50 Fi02: 45%; Rate: 24min; T.V.: 550ml; Peep: 5cm; rr5 Procedures: 22:38 Intubation: Intubated orally using # 4 Berna blade with 7.5 mm ETT. was successful jr8 on first attempt. Ventilated with Ambu bag. ventilator. Cricoid pressure applied during procedure. Tube secured with ETT domingo at center of mouth measured 23 cm at teeth. Placement verified by CXR, CO2 detector with (+) color change, auscultating bilateral breath sounds, O2 saturation after procedure was 100 %. Patient tolerated well. Central Line: the site was prepped with Betadine, in sterile fashion, a triple lumen catheter was inserted, in the right femoral vein, in 1 attempts. placement was verified, by blood return, the site was dressed with 4X4s, Tegaderm, foam tape, using sterile technique, the patient tolerated the procedure, well. MDM: 18:36 Patient medically screened. jr8 21:30 Data reviewed: vital signs, nurses notes, lab test result(s), EKG, radiologic studies, jr8 CT scan, plain films. Data interpreted: Pulse oximetry: on room air is 96 %. Interpretation: acceptable. Counseling: I had a detailed discussion with the patient and/or guardian regarding: the historical points, exam findings, and any diagnostic results supporting the discharge/admit diagnosis, lab results, radiology results, the need for further work-up and treatment in the hospital. Physician consultation: John Duenas MD was called at 21:31, was contacted at 21:31, regarding admission, to the ICU, consult, patient's condition, and will see patient in ED. ED course: Dr. Graf consulted and will see patient in ICU as well. Started bicarb drip per his request . 22:37 ED course: Dr. Thomas consulted as well. ED course: Patient became altered and was no jr8 longer tolerating BIPAP. Patient intubated at that time to protect airway . ED course: Discussed with and son the severity of patients condition and need for ICU care. Patient does not have living will or active DNR . 10/23 19:44 Order name: Protime (+INR); Complete Time: 19:50 EDMS 10/23 19:44 Order name: Ammonia; Complete Time: 19:50 EDMS 10/23 19:46 Order name: CBC with Automated Diff; Complete Time: 21:05 EDMS 10/23 19:50 Order name: Basic Metabolic Panel; Complete Time: 20:25 EDMS 10/23 19:50 Order name: Liver (Hepatic) Function; Complete Time: 20:25 EDMS 10/23 19:51 Order name: Troponin I; Complete Time: 20:25 [facility] 10/23 19:51 Order name: NT PRO-BNP; Complete Time: 20:25 [facility] 10/23 19:51 Order name: Magnesium; Complete Time: 20:25 [facility] 10/23 19:57 Order name: Creatine Phosphokinase; Complete Time: 20:25 [facility] 10/23 19:57 Order name: Lactate; Complete Time: 20:25 [facility] 10/23 19:57 Order name: Procalcitonin; Complete Time: 21:05 [facility] 10/23 19:58 Order name: Urine Microscopic Only; Complete Time: 21:05 [facility] 10/23 19:58 Order name: Blood Culture [facility] 10/23 19:58 Order name: Blood Culture [facility] 10/23 20:13 Order name: Urine Dipstick--Ancillary (enter results); Complete Time: 20:25 ag 10/23 20:41 Order name: Manual Differential; Complete Time: 21:05 [facility] 10/23 18:37 Order name: [facility]RAY [facility] (1 view) [facility] 10/23 18:37 Order name: EKG; Complete Time: 19:50 [facility] 10/23 18:37 Order name: Cardiac monitoring; Complete Time: 18:43 [facility] 10/23 18:37 Order name: EKG - Nurse/Tech; Complete Time: 18:43 [facility] 10/23 18:37 Order name: IV Saline Lock; Complete Time: 19:24 [facility] 10/23 18:37 Order name: Labs collected and sent; Complete Time: 19:24 [facility] 10/23 18:37 Order name: O2 Per Protocol; Complete Time: 19:24 [facility] 10/23 18:37 Order name: O2 Sat Monitoring; Complete Time: 19:24 [facility] 10/23 18:37 Order name: Urine Dipstick-Ancillary (obtain specimen); Complete Time: 21:20 [facility] 10/23 19:54 Order name: Madrigal; Complete Time: 20:24 [facility] 10/23 19:55 Order name: CT Chest Abdomen Pelvis W/O Contrast; Complete Time: 20:43 [facility] 10/23 20:06 Order name: RAD; Complete Time: 20:07 [facility] 10/23 20:42 Order name: ABG; Complete Time: 22:37 [facility] 10/23 20:42 Order name: BIPAP jr8 10/23 20:57 Order name: Urine Culture EDMS 10/23 22:30 Order name: Chest Single View XRAY mw2 Administered Medications: 19:24 Drug: NS 0.9% (30 ml/kg) 30 ml/kg Route: IV; Rate: bolus; Site: left antecubital; rr5 20:58 Follow up: Response: No adverse reaction; IV Status: Completed infusion; IV Intake: rr5 2177ml 20:22 CANCELLED (Physician Discretion): NS 0.9% 1000 ml IV at 125 ml/hr continuous jr8 20:28 Drug: Xopenex (3) 1.25 mg Route: Inhalation; rr5 21:30 Follow up: Response: No adverse reaction rr5 20:30 Drug: D50W 50 ml Route: IVP; Site: right hand; rr5 21:33 Follow up: Response: No adverse reaction rr5 20:33 Drug: Insulin Regular Human 10 units {Co-Signature: bb (Thelma Valerio RN).} Route: rr5 IVP; Site: right hand; 21:33 Follow up: Response: No adverse reaction rr5 20:34 Drug: Cardizem 10 mg {Note: HR 147 bpm given by jaxon BAÑUELOS.} Route: IVP; Site: right hand; rr5 21:30 Follow up: Response: No adverse reaction rr5 20:37 Drug: Sodium Bicarbonate 1 amp {Note: given by jaxon BAÑUELOS.} Route: IVP; Site: right hand; rr5 21:40 Follow up: Response: No adverse reaction rr5 20:45 Drug: Calcium Chloride 500 mg Route: IVP; Site: right hand; rr5 21:45 Follow up: Response: No adverse reaction rr5 21:03 Drug: NS 0.45 % 1000 ml Route: IV; Rate: 100 ml/hr; Site: right hand; rr5 23:50 Follow up: Response: No adverse reaction; IV Status: Infusion continued upon admission; rr5 IV Intake: 300ml 21:05 Dru grams of (Cefepime 2 grams, NS 0.9% 100 ml) Route: IVPB; Rate: 200 ml/hr; rr5 Infused Over: 30 mins; Site: right hand; 21:35 Follow up: Response: No adverse reaction; IV Status: Completed infusion; IV Intake: rr5 100ml 21:55 Drug: Etomidate 10 mg Route: IVP; Site: left antecubital; bb 23:00 Follow up: Response: No adverse reaction rr5 21:56 Drug: Rocuronium 70 mg Route: IVP; Site: left antecubital; bb 23:00 Follow up: Response: No adverse reaction rr5 21:56 Drug: Levophed (4 mg/250 mL D5W 4 mcg/min Route: IV; Rate: calculated rate; Site: left bb antecubital; 22:05 Follow up: IV SiteChange: right femoral; IV SiteChange Reason: Infiltration; moved to central line no infiltration to left AC 23:50 Follow up: Response: No adverse reaction; IV Status: Infusion continued upon admission; rr5 IV Intake: 60ml 22:40 Drug: vancoMYCIN 1 grams Route: IVPB; Infused Over: 2 hrs; Site: left hand; rr5 23:50 Follow up: Response: No adverse reaction; IV Status: Infusion continued upon admission; rr5 IV Intake: 100ml Disposition: 10/24 08:27 Co-signature as Attending Physician, Ab Acharya MD I agree with the assessment and giovanni plan of care. Disposition: 10/23/18 21:40 Hospitalization ordered by John Duenas for Inpatient Admission. Preliminary diagnosis are Other specified sepsis - urosepsis, Non-ST elevation (NSTEMI) myocardial infarction, Acute kidney failure, Hypermagnesemia, Acidosis, Hyperkalemia. - Bed requested for Intensive Care Unit. - Status is Inpatient Admission. rr5 - Condition is Serious. - Problem is new. - Symptoms have improved. UTI on Admission? Yes Critical care time excluding procedures: 10/23 22:46 Critical care time: Bedside Care: 20 minutes, Consultation: 20 minutes, Family jr8 Intervention: 10 minutes. Total time: 50 minutes Signatures: Dispatcher [employer] Ab Castellano MD MD cha Ballard, Brenda RN RN Teto Grubbs PA PA jr8 Attema, Lee RN RN la1 Magalys Lopez, RN RN Inder Vann RN RN jl7 Deion Elkins RN RN rr5 Thelma alvarado Corrections: (The following items were deleted from the chart) 20:22 19:50 BASIC METABOLIC PANEL+C.LAB.BRZ ordered. EDMS EDMS 20:22 19:50 CBC+H.LAB.BRZ ordered. EDMS EDMS 20:22 19:50 HEPATIC FUNCTION+C.LAB.BRZ ordered. EDMS EDMS 20:22 19:50 MAGNESIUM+C.LAB.BRZ ordered. EDMS EDMS 20:22 19:50 PROBNP+C.LAB.BRZ ordered. EDMS EDMS 20:22 19:50 PROTIME (+INR)+COAG.LAB.BRZ ordered. EDMS EDMS 20:22 20:10 NS 0.9% 1000 ml IV at 125 ml/hr continuous ordered. jr8 jr8 20:23 19:50 TROPONIN (EMERG DEPT USE ONLY)+C.LAB.BRZ ordered. EDMS EDMS 20:23 19:50 AMMONIA+C.LAB.BRZ ordered. EDMS EDMS 20:23 19:50 LACTATE+C.LAB.BRZ ordered. EDMS EDMS 20:23 19:50 Procalcitonin+C.LAB.BRZ ordered. EDMS EDMS 20:23 19:50 UA MICROSCOPIC+U.LAB.BRZ ordered. EDMS EDMS 20:23 19:50 CREATINE PHOSPHOKINASE+C.LAB.BRZ ordered. EDMS EDMS 20:41 20:08 CBC Smear Scan ordered. EDMS EDMS 20:56 19:50 BLOOD CULTURE*+BA.LAB.BRZ ordered. EDMS EDMS 22:44 21:40 Hospitalization Ordered by John Duenas MD for Inpatient Admission. Preliminary cg diagnosis is Other specified sepsis - urosepsis; Non-ST elevation (NSTEMI) myocardial infarction; Acute kidney failure; Hypermagnesemia; Acidosis; Hyperkalemia. Bed requested for Intensive Care Unit. Status is Inpatient Admission. Condition is Serious. Problem is new. Symptoms have improved. UTI on Admission? Yes. jr8 23:52 22:44 10/23/2018 21:40 Hospitalization Ordered by John Duenas MD for Inpatient rr5 Admission. Preliminary diagnosis is Other specified sepsis - urosepsis; Non-ST elevation (NSTEMI) myocardial infarction; Acute kidney failure; Hypermagnesemia; Acidosis; Hyperkalemia. Bed requested for Intensive Care Unit. Status is Inpatient Admission. Condition is Serious. Problem is new. Symptoms have improved. UTI on Admission? Yes. cg
[2018-10-23] MEDS ORDERED: ACETAMINOPHEN 650MG/RECT SUPP RECT PRN (22:32)
[2018-10-23] MEDS ORDERED: ONDANSETRON 4 MG/2 ML VIAL IV PRN (22:32)
[2018-10-23] MEDS ORDERED: D5W 1,000 ML with NA BICARB 8.4% 100 MEQ IV SCH ×2 (23:00)
[2018-10-23] MEDS: METOPROLOL TARTRATE 5 MG/5 ML INJ IV SCH (23:00)
[2018-10-23] MEDS ORDERED: D5W 1,000 ML IV ONE (23:29)
[2018-10-24] MEDS ORDERED: D50W 25 GM/50 ML SYRINGE IV ONE ×5 (00:08→07:26)
[2018-10-24] MEDS ORDERED: NA CHLORIDE 0.9% 500 ML IV ONE ×2 (01:45→03:00)
[2018-10-24] MEDS ORDERED: HYDROCORTISONE SUC 100 MG INJ ONE (01:48)
[2018-10-24] MEDS ORDERED: WATER FOR INJ,STERILE 10 ML ONE (01:49)
[2018-10-24] MEDS ORDERED: HYDROCORTISONE SUC 100 MG INJ IV ONE ×2 (02:00→03:00)
[2018-10-24] MEDS ORDERED: FENTANYL CITR 100 MCG/2 ML IV PRN (02:00)
[2018-10-24] MEDS ORDERED: D5W 250 ML IV ONE ×3 (03:03→06:16)
[2018-10-24] MEDS ORDERED: NOREPINEPHRINE 4 MG/4 ML VIAL ONE ×2 (03:03→06:02)
[2018-10-24] MEDS ORDERED: NA CHLORIDE 0.9% 500 ML ONE ×2 (03:07→10:50)
[2018-10-24] MEDS ORDERED: CALCIUM GLUC 10% INJ 4.65 MEQ in NA CHLORIDE 0.9% 100 ML IV ONE ×2 (03:57→06:25)
[2018-10-24] MEDS ORDERED: ALBUMIN HUMAN 25% 50 ML IV ONE ×2 (03:57→04:03)
[2018-10-24] MEDS: NOREPINEPHRINE 4 MG in D5W 250 ML IV PRN ×2 (04:00→06:00)
[2018-10-24] MEDS ORDERED: IPRATROPIUM BROM 0.5MG/2.5ML ONE (04:04)
[2018-10-24] MEDS ORDERED: ALBUTEROL 2.5 MG/3 ML NEB SOL ONE (04:04)
[2018-10-24] MEDS ORDERED: CALCIUM GLUCONATE 1 GM IVPB 1 GM/50 ML BAG IV ONE ×2 (04:07→06:25)
[2018-10-24] MEDS ORDERED: SODIUM BICARB 50 MEQ/50ML VIAL ONE ×2 (04:07→06:30)
[2018-10-24 04:25] LABS: Albumin 1.9 g/dL (3.4-5.0); Bilirubin Total 1.8 mg/dL (0.2-1.0); Protein, Total 5.8 g/dL (6.4-8.2)
[2018-10-24 04:26] LABS: Potassium 6.7 mmol/L (3.5-5.1)
[2018-10-24 04:27] LABS: Magnesium 3.7 mg/dL (1.8-2.4)
[2018-10-24 04:35] LABS: Absolute Lymphocytes (CBC) 0.8 K/uL (0.7-4.9); Basophils % 0.2 % (0-1.3); Hematocrit 44.7 % (39.6-49.0); Lymphocytes % 6.8 % (15.3-44.8); MPV 9.5 fL (7.6-11.3); RBC Red Blood Cell Count 4.52 M/uL (4.33-5.43)
[2018-10-24] MEDS: METOPROLOL TARTRATE 5 MG/5 ML INJ IV SCH ×2 (05:00→11:00)
[2018-10-24 05:32] LABS: Arterial Blood Carboxyhemoglob 0.4 % (0-1.5); Blood Gas Oxyhemoglobin 95.6 % (94-97); Blood O2 Saturation 97.1 % (92-98.5)
[2018-10-24] MEDS ORDERED: Phenylephrine HCl 10 MG/ML 1 ML VIAL ONE (06:13)
[2018-10-24] MEDS ORDERED: NA CHLORIDE 0.9% 0 ML ONE (06:14)
[2018-10-24 06:31] LABS: Absolute Lymphocytes (CBC) 1.1 K/uL (0.7-4.9); Basophils % 0.5 % (0-1.3); Hematocrit 42.3 % (39.6-49.0); Lymphocytes % 7.6 % (15.3-44.8); MPV 9.4 fL (7.6-11.3); RBC Red Blood Cell Count 4.25 M/uL (4.33-5.43)
[2018-10-24 06:33] LABS: Protime INR 1.42
[2018-10-24] MEDS: SODIUM BICARB 50 MEQ/50ML VIAL ONE (06:48)
[2018-10-24] MEDS ORDERED: CEFEPIME 1 GM/VIAL IV SCH (07:00)
[2018-10-24] MEDS ORDERED: GLUCAGON 1 MG/VIAL IM PRN (07:26)
[2018-10-24] MEDS ORDERED: CALCIUM CL 10% 13.6 MEQ in NA CHLORIDE 0.9% 100 ML IV ONE (07:26)
[2018-10-24] MEDS ORDERED: D50W 25 GM/50 ML SYRINGE IV PRN (07:26)
[2018-10-24] MEDS ORDERED: INSULIN -REGULAR HUMAN 50 UNIT/0.5 ML ML IV ONE (07:29)
[2018-10-24 07:33] LABS: ALT/SGPT 178 U/L (12-78); AST/SGOT 673 U/L (15-37); Albumin 1.9 g/dL (3.4-5.0); Alkaline Phosphatase 182 U/L (45-117); BUN Blood Urea Nitrogen 70 mg/dL (7-18); Bicarbonate 9 mmol/L (21-32); Bilirubin Total 2.1 mg/dL (0.2-1.0); Glucose Level 133 mg/dL (74-106); Magnesium 3.5 mg/dL (1.8-2.4); NT PRO-BNP 44912 pg/mL (<125); Phosphorus > 9.0 mg/dL (2.5-4.9); Protein, Total 5.4 g/dL (6.4-8.2); Sodium Level 146 mmol/L (136-145)
[2018-10-24 07:37] LABS: Potassium 6.8 mmol/L (3.5-5.1)
[2018-10-24] MEDS ORDERED: Caclcium Chloride 10% INJ SYR IV ONE (07:45)
[2018-10-24] MEDS ORDERED: HEPARIN 5000 UNIT/ML 1 ML VIAL ONE (07:54)
--- NOTE | 2018-10-24 07:58 | P.OP ---
Preoperative diagnosis: Acute Renal Failure Postoperative diagnosis: Acute Renal Failure Primary procedure: Placement of Temporary LEFT Femoral Dialysis Catheter Secondary procedure: microintroducer used Anesthesia: Local 1% lidocaine Estimated blood loss: <5cc Specimen: None Findings: Non-pulsatile dark blood returned Complications: None Transferred to: ICU Condition: Critical
[2018-10-24] MEDS ORDERED: HYDROCORTISONE SUC 100 MG INJ IV SCH ×2 (08:00→09:00)
[2018-10-24] MEDS ORDERED: D5W 1,000 ML with NA BICARB 8.4% 150 MEQ IV SCH ×4 (08:00→10:15)
--- NOTE | 2018-10-24 08:04 | RAD REPORT ---
EXAM DESCRIPTION: Rudolph Single View10/23/2018 10:55 pm CLINICAL HISTORY: Device placement endotracheal tube placement COMPARISON: October 23, 2018 FINDINGS: Endotracheal tube has been inserted with its tip 5 centimeters above the [place]. Nasogastr ic tube has been placed into the stomach. Medial right base is mildly hazy which may indicate a mild infiltrate or atelectasis.
[2018-10-24] MEDS ORDERED: Pharmacy Consult 1 EA XX PRN (08:22)
--- NOTE | 2018-10-24 08:29 | P.CNS ---
Date of Consult: 10/24/18 Reason for Consult: Shock respiratory failure Chief Complaint: Shock History of Present Illness: Patient is 63 years of age has been sick for about 2 weeks he vent to [facility] no stool with reflux became progressively worse is currently in respiratory failure refractory shock multiple vasopressors acidotic in acute renal failure patient was diaphoretic hypotensive at home Allergies No Known Allergies Allergy (Verified 10/24/18 00:36) Home Medications: Furosemide 20 mg PO DAILY 10/24/18 Ibuprofen [Ibu] 600 mg PO QIDP PRN 10/24/18 Metformin ER [Glucophage ER] 1,000 mg PO BID 10/24/18 Pantoprazole [Protonix Tab] 40 mg PO DAILY 10/24/18 Ranitidine [Zantac*] 150 mg PO BID 10/24/18 Spironolactone 100 mg PO DAILY 10/24/18 Sucralfate [Carafate*] 1 gm PO QID 10/24/18 traMADol HCL [Ultram] 50 mg PO TID PRN 10/24/18 - Past Medical/Surgical History Diabetic: Yes -: hypertension -: hepatitis C -: type 2 DM -: asbestos -: cirrhosis -: upper GI bleed -: gastric bypass -: cholecystectomy -: tonsillectomy - Family History Brother Medical History: Cancer Father History Unknown: Yes Notes: deceases Mother History Unknown: Yes - Social History Smoking Status: Unknown if ever smoked Alcohol use: No Caffeine use: Yes Place of Residence: Home Review of Systems is unable to be obtained Physical Examination Temp Pulse Resp BP Pulse Ox 101 F H 127 H 31 H 76/53 L 100 10/24/18 07:00 10/24/18 07:00 10/24/18 07:00 10/24/18 07:00 10/24/18 07:00 General: Unresponsive Neck: Supple Respiratory: Clear to auscultation bilaterally, Diminished Cardiovascular: No edema, Other (Extremities mottled) Gastrointestinal: Hypoactive, Soft and benign Musculoskeletal: No clubbing Laboratory Data (last 24 hrs) 10/23/18 18:40: PT 13.2 H, INR 1.12 10/23/18 18:40: WBC 15.4 H, Hgb 15.9, Hct 49.7 H, Plt Count 91 L 10/23/18 18:40: Sodium 143, Potassium 5.4 H, BUN 70 H, Creatinine 3.97 H, Glucose 120 H, Magnesium 3.2 H D, Total Bilirubin 1.9 H, AST 150 H, ALT 72, Alkaline Phosphatase 135 H, Troponin I 3.43 H* 10/23/18 18:37: PT Cancelled, INR Cancelled 10/23/18 18:37: WBC Cancelled, Hgb Cancelled, Hct Cancelled, Plt Count Cancelled 10/23/18 18:37: Sodium Cancelled, Potassium Cancelled, BUN Cancelled, Creatinine Cancelled, Glucose Cancelled, Magnesium Cancelled, Total Bilirubin Cancelled, AST Cancelled, ALT Cancelled, Alkaline Phosphatase Cancelled - Problems (1) Shock Current Visit: Yes Status: Acute Plan: Patient is 63 years of age admitted with refractory shock continue with IV fluids is very acidotic bicarb replacement acute renal failure. Nephrology Consul continue with hydrocortisone I have also added thymine vitamin-C vancomycin continue with cefepime and settings reviewed is only on 45% oxygen chest x-rays clear blood cultures sent at sputum cultures no history of tobacco abuse
--- NOTE | 2018-10-24 08:56 | EKG ---
Test Date: 2018-10-23 Test Time: 18:31:36 Cathode Maker: INGRID MEASUREMENT RESULTS: Intervals: Rate: 107 MA: QRSD: 86 QT: 282 QTc: 376 [place]: P: MA: QRS: 49 T: 62 INTERPRETIVE STATEMENTS: Atrial fibrillation with rapid ventricular response Abnormal ECG Compared to ECG 10/14/2017 20:08:09 Sinus tachycardia no longer present Electronically Signed On 10-24-18 08:56:05 CDT by Anand Wallis
--- NOTE | 2018-10-24 08:57 | EKG ---
Test Date: 2018-10-23 Test Time: 20:34:38 Staking Technician: AG3 MEASUREMENT RESULTS: Intervals: Rate: 96 AK: QRSD: 86 QT: 318 QTc: 401 [place]: P: AK: QRS: 39 T: 55 INTERPRETIVE STATEMENTS: Atrial fibrillation Abnormal ECG Compared to ECG 10/23/2018 18:31:36 No significant changes Electronically Signed On 10-24-18 08:56:21 CDT by Anand Wallis
[2018-10-24] MEDS ORDERED: CEFEPIME/SWI 1gm 10 ML IV SCH (09:00)
[2018-10-24] MEDS ORDERED: VANCOMYCIN 1.5 GM in NA CHLORIDE 0.9% 500 ML IVPB SCH (09:00)
[2018-10-24] MEDS ORDERED: THIAMINE 200 MG/2 ML INJ IVP SCH (09:00)
[2018-10-24] MEDS ORDERED: HEPARIN 5000 UNIT/ML 1 ML VIAL SQ SCH (09:00)
[2018-10-24] MEDS ORDERED: LACTULOSE 20 GM/30 ML UCUP PO ONE (09:00)
[2018-10-24] MEDS ORDERED: WATER FOR INJ,STERILE 10 ML IV SCH (09:00)
[2018-10-24 09:01] LABS: Blood Morphology Comment NOTED (NOT SEEN); Burr Cells 2+; Dohle Bodies PRESENT; Platelet Estimate DECR; Toxic Granulation 2+
--- NOTE | 2018-10-24 09:35 | ECHO ---
HEIGHT: 5 ft 11 in WEIGHT: 183 lb 14.4 oz DATE OF STUDY: 10/24/[address]: John Duenas MD 2-DIMENSIONAL: YES M.MODE: YES DOPPLER: YES COLOR FLOW: YES TDS: PORTABLE: YES DEFINITY: BUBBLE STUDY: DIAGNOSIS: CONGESTIVE HEART FAILURE CARDIAC HISTORY: CATHERIZATION: NO SURGERY: NO PROSTHETIC VALVE: NO PACEMAKER: NO MEASUREMENTS (cm) DIASTOLIC (NORMALS) SYSTOLIC (NORMALS) IVSd 1.2 (0.6-1.2) LA Diam 2.7 (1.9-4.0) LVEF 77% LVIDd 3.0 (3.5-5.7) LVIDs 1.7 (2.0-3.5) %FS 44% LVPWd 1.2 (0.6-1.2) Ao Diam 3.1 (2.0-3.7) 2 DIMENSIONAL ASSESSMENT: RIGHT ATRIUM: NORMAL LEFT ATRIUM: NORMAL RIGHT VENTRICLE: NORMAL LEFT VENTRICLE: NORMAL TRICUSPID VALVE: NORMAL MITRAL VALVE: NORMAL PULMONIC VALVE: NORMAL AORTIC VALVE: NORMAL PERICARDIAL EFFUSION: NONE AORTIC ROOT: NORMAL LEFT VENTRICULAR WALL MOTION: NORMAL DOPPLER/COLOR FLOW: NO AORTIC STENOSIS OR AORTIC REGURGITATION. MILD TRICUSPID REGURGITATION. NORMAL RIGHT VENTRICULAR SYSTOLIC PRESSURE. COMMENTS: NORMAL LEFT VENTRICULAR EJECTION FRACTION. AORTIC SCLEROSIS WITH NO AORTIC STENOSIS OR AORTIC REGURGITATION. MILD TRICUSPID REGURGITATION. HEART RATE 136 BEATS PER MINUTE. POSSIBLE ATRIAL FLUTTER. TECHNOLOGIST: ANNIE XAVIER
[2018-10-24] MEDS: D5W 1,000 ML with NA BICARB 8.4% 150 MEQ IV SCH ×4 (10:14→13:49)
--- NOTE | 2018-10-24 10:45 | P.HP ---
Certification for Inpatient Patient admitted to: Inpatient With expected LOS: >2 Midnights Patient will require the following post-hospital care: None Practitioner: I am a practitioner with admitting privileges, knowledge of patient current condition, hospital course, and medical plan of care. Services: Services provided to patient in accordance with Admission requirements found in Title 42 Section 412.3 of the Code of Federal Regulations Patient History Date of Service: 10/23/18 Reason for admission: Shock History of Present Illness: Patient is a 63-year-old gentleman who presents to the hospital with atrial fibrillation with rapid ventricular response and altered mental status. patient was seen at [facility] a few days ago with chest discomfort. He is discharged home with anti-inflammatories. Yesterday he was altered and he was confused. Patient fell and was found between 2 pieces of furniture. EMS was called and they found him to be up time did. They brought him to our hospital and he was found to have prior complaint as mentioned. Patient was initially given Cardizem. This helped convert patient into a sinus rhythm. Patient was also given 2 L of normal saline. Patient was tachypneic, and pt was found to have lactic acidosis. Patient also had renal failure with uremia and hyperkalemia. Decision was made to admit the patient to the hospital for further evaluation. While in the emergency room patient became more lethargic and hypotensive. Patient was intubated & he was started on Levophed. patient was admitted to the intensive care unit for further evaluation. In the ER patient was also found to have elevated troponin levels. Spoke with Cardiology regarding the atrial fibrillation and elevated troponin level and plan was to use digoxin to assist with management of atrial fibrillation as needed. We also spoke with Nephrology and decision was made to monitor renal function. Allergies No Known Allergies Allergy (Verified 10/24/18 00:36) Home Medications: Furosemide 20 mg PO DAILY 10/24/18 Ibuprofen [Ibu] 600 mg PO QIDP PRN 10/24/18 Metformin ER [Glucophage ER] 1,000 mg PO BID 10/24/18 Pantoprazole [Protonix Tab] 40 mg PO DAILY 10/24/18 Ranitidine [Zantac*] 150 mg PO BID 10/24/18 Spironolactone 100 mg PO DAILY 10/24/18 Sucralfate [Carafate*] 1 gm PO QID 10/24/18 traMADol HCL [Ultram] 50 mg PO TID PRN 10/24/18 - Past Medical/Surgical History Diabetic: Yes -: hypertension -: hepatitis C -: type 2 DM -: asbestos -: cirrhosis -: upper GI bleed -: gastric bypass -: cholecystectomy -: tonsillectomy - Family History Brother Medical History: Cancer Father History Unknown: Yes Notes: deceases Mother History Unknown: Yes - Social History Smoking Status: Never smoker Alcohol use: No Caffeine use: Yes Place of Residence: Home Review of Systems is unable to be obtained (Patient is intubated and lethargic) Physical Examination - Vital Signs Temperature: 101 F Blood Pressure: 76/53 Pulse: 127 Respirations: 31 Pulse Ox (%): 100 - Physical Exam General: Unresponsive, Other ( lethargic and intubated) HEENT: Atraumatic, Normocephalic, Other ( ET tube and NG tube in place) Neck: Supple, 2+ carotid pulse no bruit, JVD not distended, No Thyromegaly, No LAD Respiratory: Clear to auscultation bilaterally, Normal air movement Cardiovascular: Regular rate/rhythm, Normal S1 S2, Systolic murmur Gastrointestinal: Normal bowel sounds, Soft and benign, Non-distended, No tenderness, No rebound, No guarding Musculoskeletal: No clubbing, No swelling Integumentary: Other ( bilateral lower extremity has a mottled appearance.) Neurological: Other ( Altered mental status ) Lymphatics: No axilla or inguinal lymphadenopathy - Studies Laboratory Data (last 24 hrs) 10/23/18 18:40: PT 13.2 H, INR 1.12 10/23/18 18:40: WBC 15.4 H, Hgb 15.9, Hct 49.7 H, Plt Count 91 L 10/23/18 18:40: Sodium 143, Potassium 5.4 H, BUN 70 H, Creatinine 3.97 H, Glucose 120 H, Magnesium 3.2 H D, Total Bilirubin 1.9 H, AST 150 H, ALT 72, Alkaline Phosphatase 135 H, Troponin I 3.43 H* 10/23/18 18:37: PT Cancelled, INR Cancelled 10/23/18 18:37: WBC Cancelled, Hgb Cancelled, Hct Cancelled, Plt Count Cancelled 10/23/18 18:37: Sodium Cancelled, Potassium Cancelled, BUN Cancelled, Creatinine Cancelled, Glucose Cancelled, Magnesium Cancelled, Total Bilirubin Cancelled, AST Cancelled, ALT Cancelled, Alkaline Phosphatase Cancelled Assessment & Plan - Problems (Diagnosis) (1) Shock, septic Current Visit: Yes Status: Acute (2) HYACINTH (acute kidney injury) Current Visit: Yes Status: Acute (3) Lactic acidosis Current Visit: Yes Status: Acute (4) NSTEMI (non-ST elevated myocardial infarction) Current Visit: Yes Status: Acute (5) Atrial fibrillation with rapid ventricular response Current Visit: Yes Status: Acute (6) Respiratory failure Current Visit: Yes Status: Acute (7) Hyperkalemia Current Visit: Yes Status: Acute - Plan 1. IV hydration w/ bicarb drip. 2. Monitor rate and digoxin as needed 3. Clinical Informaticist and cardiology consultation 4. Possible hemodialysis 5. continue with vent management and vasopressor support 6. IV antibiotics- Patient was given vancomycin and will give cefepime as well 7. CT of the head was patient is hemodynamically stable 8. GI and DVT prophylaxis Discharge Plan: Home Plan to discharge in: Greater than 2 days - Advance Directives Does patient have a Living Will: No Does patient have a Durable POA for Healthcare: No - Code Status/Comfort Care Code Status Assessed: Yes Code Status: Full Code Critical Care: Yes Time Spent Managing PTS Care (In Minutes): 60
[2018-10-24] MEDS ORDERED: VASOPRESSIN 80 UNIT in NA CHLORIDE 0.9% 250 ML IV PRN (10:46)
[2018-10-24] MEDS ORDERED: ALBUMIN HUMAN 25% 200 ML IV ONE (11:00)
--- NOTE | 2018-10-24 11:07 | P.PN ---
Subjective Date of Service: 10/24/18 patient's clinical condition has deteriorated. He responded to Nephrology and will go ahead and get the patient set up for hemodialysis. Surgery consulted for Mitesh catheter placement. The patient on Levophed and Dipesh-Synephrine. Patient had atrial fibrillation with RVR. Will start dopamine if needed. Awaiting echocardiogram this a.m.. Spoke with family once again and they want everything done. Prognosis is poor. Review of Systems is unable to be obtained Physical Examination - Vital Signs Temperature: 101 F Blood Pressure: 76/53 Pulse: 127 Respirations: 31 Pulse Ox (%): 100 - Physical Exam General: Unresponsive, Other ( Intubated) HEENT: Atraumatic, Normocephalic, Other ( her ET tube and OG tube in place) Cardiovascular: Regular rate/rhythm, Normal S1 S2, No murmurs Gastrointestinal: Normal bowel sounds, Soft and benign, Non-distended, No tenderness Musculoskeletal: No clubbing, No swelling - Studies Laboratory Data (last 24 hrs) 10/23/18 18:40: PT 13.2 H, INR 1.12 10/23/18 18:40: WBC 15.4 H, Hgb 15.9, Hct 49.7 H, Plt Count 91 L 10/23/18 18:40: Sodium 143, Potassium 5.4 H, BUN 70 H, Creatinine 3.97 H, Glucose 120 H, Magnesium 3.2 H D, Total Bilirubin 1.9 H, AST 150 H, ALT 72, Alkaline Phosphatase 135 H, Troponin I 3.43 H* 10/23/18 18:37: PT Cancelled, INR Cancelled 10/23/18 18:37: WBC Cancelled, Hgb Cancelled, Hct Cancelled, Plt Count Cancelled 10/23/18 18:37: Sodium Cancelled, Potassium Cancelled, BUN Cancelled, Creatinine Cancelled, Glucose Cancelled, Magnesium Cancelled, Total Bilirubin Cancelled, AST Cancelled, ALT Cancelled, Alkaline Phosphatase Cancelled Assessment & Plan - Problems (Diagnosis) (1) Shock, septic Current Visit: Yes Status: Acute (2) HYACINTH (acute kidney injury) Current Visit: Yes Status: Acute (3) Lactic acidosis Current Visit: Yes Status: Acute (4) NSTEMI (non-ST elevated myocardial infarction) Current Visit: Yes Status: Acute (5) Atrial fibrillation with rapid ventricular response Current Visit: Yes Status: Acute (6) Respiratory failure Current Visit: Yes Status: Acute (7) Hyperkalemia Current Visit: Yes Status: Acute - Plan continue with current plan of care: 1. IV hydration w/ bicarb drip. 2. Monitor rate and digoxin as needed 3. Chemical Etching Processor and cardiology consultation 4. We will arrange for hemodialysis 5. continue with vent management and vasopressor support 6. IV antibiotics- Patient was given vancomycin and will give cefepime as well 7. CT of the head was patient is hemodynamically stable 8. GI and DVT prophylaxis Discharge Plan: Home Plan to discharge in: Greater than 2 days - Advance Directives Does patient have a Living Will: No Does patient have a Durable POA for Healthcare: No - Code Status/Comfort Care Code Status: Full Code Critical Care: Yes Time Spent Managing PTS Care (In Minutes): 50
--- NOTE | 2018-10-24 11:08 | EKG ---
Test Date: 2018-10-24 Test Time: 09:27:08 Car Rental Manager: RIAN MEASUREMENT RESULTS: Intervals: Rate: 142 ME: 144 QRSD: 94 QT: 292 QTc: 449 [place]: P: 68 ME: 144 QRS: 23 T: 54 INTERPRETIVE STATEMENTS: Sinus tachycardia with occasional premature ventricular complexes Low voltage QRS Borderline ECG Compared to ECG 10/23/2018 20:34:38 Ventricular premature complex(es) now present Low QRS voltage now present Atrial fibrillation no longer present Electronically Signed On 10-24-18 11:06:47 CDT by Anand Wallis
--- NOTE | 2018-10-24 11:21 | CON ---
Date of Consultation: 10/24/2018 Brief History Of Present Illness: The patient is a 63-year-old male, who presents to hospital with w orsening respiratory failure and shock, who is on multiple pressors, acidotic, acute renal failure, a nd hypotensive. I was consulted for placement of a temporary dialysis catheter. The information is obtained from the chart as the patient is currently intubated and on multiple pressors and hemodynami bull unstable. Past Medical History: Significant for hypertension, hepatitis C, diabetes, asbestosis, cirrhosis, up per GI bleed, gastric bypass, cholecystectomy, tonsillectomy. Home Medications: Lasix, ibuprofen, metformin, pantoprazole, ranitidine, spironolactone, sucralfate, and tramadol. Allergies: NO KNOWN DRUG ALLERGIES. Review of Systems: Unable to obtain. The remainder of the history is unable to obtain at this time. Physical Examination: General: Patient is intubated, sedated, and nonresponsive. HEENT: NG tube in place. ET tube in place. He is being ventilated. He is hemodynamically unstable . Chest: Decreased expansion and excursion. Cardiovascular: He is tachycardic with appears to be atrial fibrillation. Abdomen: Soft, nontender. Extremities: He has some mottling to the skin of the extremities. I examined the left femoral vein area and found there was a palpable pulse at the femoral artery, and as such, I decided using anatomi c landmarks for placement of a temporary dialysis catheter, although patient is hemodynamically unsta ble and I do not believe he will tolerate this at this particular juncture, however, should he recove r, we will have a hemodialysis catheter in place. Vital Signs: Unstable as described. His blood pressures in the 70s systolic. He is tachycardic to the 120s and 130s. He is ventilated. Laboratory Data: Labs reviewed. Assessment And Plan: This is a 63-year-old male, who comes in with shock and hemodynamic instability on multiple pressors and acute renal failure. 1.Continue maximal medical management. 2.I will place a left femoral hemodialysis catheter under sterile conditions. Should he be able to tolerate this, we will initiate hemodialysis at that time. Consent was obtained from the patient's w ivrgilio. Thank you for this interesting consult. TIM/ESTELLE Voice ID: [id number] Report ID: [id number]
--- NOTE | 2018-10-24 11:36 | P.PN ---
Subjective Date of Service: 10/24/18 Chief Complaint: Shock Patient seen and examined at bedside with RN. Chart reviewed. Case discussed with cardiology, nephrology, pulmonology at this time. Currently patient remains intubated and sedated. Is maxed out on 2 pressors. Prognosis seems to be poor. Extended discussion with family still wants to continue with full code and tried everything possible. Will read touch with family if patient's condition history is further. Review of Systems 10-point ROS is otherwise unremarkable Physical Examination - Vital Signs Temperature: 101 F Blood Pressure: 76/53 Pulse: 127 Respirations: 31 Pulse Ox (%): 100 - Physical Exam General: Other (Sedated and Intubated) Respiratory: Normal air movement, Expiratory wheezes, Inspiratory wheezes, Rhonchi/gurgles Cardiovascular: Normal S1 S2, Irregular heart rate/rhythm Gastrointestinal: Tenderness (Lower abdomen Tenderness) Musculoskeletal: Other (Cold and clamy BL LE and Skin Molting observed) Integumentary: Cyanosis Neurological: Abnormal cranial nerve function, Abnormal reflexes - Studies Laboratory Data (last 24 hrs) 10/23/18 18:40: PT 13.2 H, INR 1.12 10/23/18 18:40: WBC 15.4 H, Hgb 15.9, Hct 49.7 H, Plt Count 91 L 10/23/18 18:40: Sodium 143, Potassium 5.4 H, BUN 70 H, Creatinine 3.97 H, Glucose 120 H, Magnesium 3.2 H D, Total Bilirubin 1.9 H, AST 150 H, ALT 72, Alkaline Phosphatase 135 H, Troponin I 3.43 H* 10/23/18 18:37: PT Cancelled, INR Cancelled 10/23/18 18:37: WBC Cancelled, Hgb Cancelled, Hct Cancelled, Plt Count Cancelled 10/23/18 18:37: Sodium Cancelled, Potassium Cancelled, BUN Cancelled, Creatinine Cancelled, Glucose Cancelled, Magnesium Cancelled, Total Bilirubin Cancelled, AST Cancelled, ALT Cancelled, Alkaline Phosphatase Cancelled Medications List Reviewed: Yes Assessment And Plan - Current Problems (Diagnosis) (1) Acute respiratory failure Current Visit: Yes Status: Acute Plan: Patient with acute hypoxic respiratory failure most likely secondary to cardiac versus infectious etiology -currently patient is intubated and sedated will wean as tolerated -pulmonology is consulted. Appreciated recommendations at this time -chest x-ray is pending at this time -initial CT scan done without any acute abnormality Qualifiers: Respiratory failure complication: hypoxia Qualified Code(s): J96.01 - Acute respiratory failure with hypoxia (2) Shock, septic Current Visit: Yes Status: Acute Plan: Patient currently with severe septic shock with hypotension tachycardia and respiratory failure -elevated white count along with lactic acid and pro calcitonin -patient is currently hypotensive requiring 2 pressors currently on Levophed and phenylephrine started on vasopressin now -patient currently on IV cefepime and vancomycin as well -blood culture, urine culture, chest x-ray, sputum cultures collected at this time pending results -will follow up with results -currently patient also on stress dose steroids along with vitamin-C and folic acid and Zinc (3) HYACINTH (acute kidney injury) Current Visit: Yes Status: Acute Plan: HYACINTH I most likely secondary to severe dehydration versus infection versus cardiorenal syndrome -BUN and creatinine elevated at this time along with electrolyte imbalance with hyperkalemia, hyperphosphatemia and lactic acidosis -nephrology is consulted. Appreciated recommendations at this time -patient is currently scheduled for hemodialysis today for to correct the electrolyte imbalance -patient essentially needs CRRT however patient is currently to once stable to be transferred to higher level of care -will monitor patient closely here in the hospital along the side with nephrology if patient does seem to be turning around and is stable will attempt to transfer (4) Atrial fibrillation with rapid ventricular response Current Visit: Yes Status: Acute Plan: Patient initially presenting to the ED with atrial fibrillation with RVR. -given IV medication in the ER and was converted to sinus rhythm -cardiology is consulted. Appreciated recommendations -echocardiogram done with ejection fraction of 77% with elevated heart rate would seem to be as atrial flutter -cardiology is planning on doing cardioversion later on today at bedside -currently beta-skyla on hold due to low blood pressure (5) NSTEMI (non-ST elevated myocardial infarction) Current Visit: Yes Status: Acute Plan: Patient with elevated troponin and chest pain 2 weeks ago for which she went to the ER -most likely secondary to cardiac etiology versus infection at this time -cardiology on the case. Appreciated recommendations (6) Liver cirrhosis Current Visit: Yes Status: Acute Plan: Patient with history of liver cirrhosis now with elevated LFTs -most likely secondary to shock -albumin times 1 right now and 3 bags during dialysis -will monitor patient closely here in the hospital Qualifiers: Hepatic cirrhosis type: other cirrhosis Qualified Code(s): K74.69 - Other cirrhosis of liver (7) Hepatitis C Current Visit: Yes Status: Chronic Qualifiers: Viral hepatitis chronicity: chronic Hepatic coma status: without hepatic coma Qualified Code(s): B18.2 - Chronic viral hepatitis C - Plan Patient currently pending clinical improvement Discharge Plan: Other Plan to discharge in: Greater than 2 days - Code Status/Comfort Care Code Status Assessed: Yes Critical Care: Yes
--- NOTE | 2018-10-24 11:40 | RAD REPORT ---
EXAM DESCRIPTION: Rudolph Single View10/24/2018 11:25 am CLINICAL HISTORY: Shortness of breath COMPARISON: October 23, 2018 FINDINGS: Endotracheal tube has its tip 5.5 centimeters above the [place]. Nasogastric tube is present within the stomach. Mild right basilar opacity appears partially resolved. Heart is normal size
--- NOTE | 2018-10-24 11:47 | CON ---
History Of Present Illness: Mr. Monterroso was brought to the hospital. He was intubated in the field, I believe. He had rapid atrial fibrillation. He was given Cardizem both by the EMS team and by the e mergency room and he has been hypotensive since then. He is on several pressors. His initial blood pressure when he got here was 88/67. He had a blood pressure of 108/76. His heart rate has remained above 120 the whole time he has been here. It is actually impossible to tell whether this is sinus tach or atrial fibrillation still. We do not have much in a past medical history from him. Apparent ly, he has been treated for diabetes, hypertension, obesity. He has had gastric bypass surgery in past. Since he has been here, the clinical picture is of septicemia. He has elevated white blood cell count, elevated procalcitonin, but no definite source of infection is seen. His EKG when he fir st came showed atrial fibrillation, heart rate 96. It has been just a few moments after receiving Ca rdizem. There is no ST change. His laboratory exam reveals multiorgan system failure with creatinin es above 4, potassiums above 6, blood pressure is below 90. Troponins are very elevated 12.9 and 4.7 . Procalcitonin 7.03. Physical Examination: General: The patient is comatose, does not respond to pain. He makes some respiratory motions, but does not move any air. Does not trigger any pressure changes on the ventilator. Lungs: Reveal equal breath sounds bilaterally. Abdomen: Soft. Extremities: Cool. Distal pulses are diminished. Laboratory Data: He has a lactic acid level of 23.8. One blood sugar was as low as 47, most recent one is 133 or 155. Impression: The patient has overwhelming sepsis of unknown source. He is receiving antibiotics. He is receiving pressors. He is in a reverse Trendelenburg position, remains with very low blood press ure. He is receiving phenylephrine, vancomycin, bicarbonate. He has received at least 1 dose of IV metoprolol, but that is being held because of hypotension. I think an EKG and echo might help us. Dakota apodaca will try to get those done soon, but I think he may be in sinus tach rather than atrial fibrillatio n already. His main problem of course is overwhelming septicemia with multiorgan system failure. BHANU/MODL Voice ID: [id number] Report ID: [id number]
[2018-10-24] MEDS ORDERED: ASCORBIC ACID 500 MG TABLET PO SCH (12:00)
[2018-10-24] MEDS: NOREPINEPHRINE 8 MG in Dextrose 5%-Water 500 ML IV PRN ×2 (13:53→13:55)
--- NOTE | 2018-10-24 15:22 | CON ---
Date of Consultation: 10/24/2018 Reason For Consult: Acute renal failure. History Of Present Illness: Mr. Avalos is a 63-year-old male with multiple medical problems, presenti ng to [facility] yesterday after his family found him confused and disoriented. Talib benitez was at [facility] about 2 weeks ago for cardiac-related issues. He was recently dischar ge. He was found to have severe lactic acidosis with shock. He is currently on 2 pressors and he i s also intubated. Past Medical History: Significant for history of hypertension, hepatitis C, type 2 diabetes, asbesto sis, cirrhosis, history of upper gastrointestinal bleed, gastric bypass, cholecystectomy, and tonsill ectomy. Family History: Noncontributory at this time. Review of Systems: Unable to be obtained. Social History: Patient was living at his home with his family. Smoking or alcohol use, unable to b e obtained at this time. Physical Examination: Vital Signs: Showing temperature of 101.1, pulse rate of 127, respiratory rate of 31, and blood pres sure of 76/53. He is on 2 pressors including norepinephrine and Dipesh-Synephrine. General: He is intubated, unresponsive. HEENT: Atraumatic head. Lungs: Auscultation of the lungs revealed bilateral equal air entry. Abdomen: Soft and nontender. Extremities: Showed no evidence of edema. Laboratory Data: At this time are showing sodium of 146, potassium of 6.8, chloride of 106, bicarb o f 9, BUN of 70, and creatinine of 4.4. Lactic acid was 23.8. Phosphorus was more than 9. AST and A LT and alkaline phosphatase are all elevated. Troponin was elevated to 12.9. Albumin was 1.9. Proc alcitonin was 7.03. He is currently on D5 water with 3 amps of sodium bicarbonate going at 100 mL an hour. He is on cefe pime 1 g daily and he has received multiple doses of sodium bicarbonate and vancomycin 1.5 g q.36 jaret rs has been ordered. He is getting calcium, insulin, and D50 to manage his hyperkalemia as well at t his time. Impression: 1.Acute renal failure secondary to shock leading to acute tubular necrosis, oliguric with severe hyp erkalemia and acidosis. Patient is going to need renal replacement therapy at this time. He would b enefit from CRRT; however, because of unavailability of CRRT, we will go ahead and try regular dialys is on him for 3 hours with a low blood flow rate and albumin support. We will not be able to take of f any fluids, but we will try to dialyze him to improve his acidosis as well as hyperkalemia. We morgan l also increase IV fluids to 150 mL an hour with D5 water with 3 amps of sodium bicarbonate. I agree with antibiotics, which have been renally adjusted at this time. 2.Sepsis with shock. Procalcitonin is elevated. Patient has been started on broad-spectrum antibio tics. Blood cultures have been sent and are currently pending. Urine is not showing any evidence of infection at this time. 3.Elevated troponins, likely from shock related to sepsis versus underlying cardiac issues. We will request Cardiology consult and await their recommendations. 4.Type 2 diabetes. Patient will be started on insulin protocol. 5.Hyperkalemia. Patient will be given a dose of Kayexalate and another round of calcium, insulin, a nd D50 to improve intracellular movement of potassium. 6.Acidosis, likely secondary to combination of lactic acidosis as well as shock. Plan to improve hy dration and continue antibiotics and monitor him closely. Plan: Overall the patient's condition is very guarded at this time. I discussed with his son who is his power of military professional regarding initiating dialysis. Patient's son is agreeable and has given conse nt to me over the telephone. I have also discussed regarding possible transfer if his condition cont inues to be deteriorate or his blood pressure does not improve for initiation of CRRT. Son wanted hi m transferred out if need to. In the meanwhile, continue supportive care. We will monitor closely. Thank you very much for this consultation. Please do not hesitate to call with any questions or conc erns. VV/MODL Voice ID: [id number] Report ID: [id number]
--- NOTE | 2018-10-24 20:50 | OP ---
Date of Procedure: 10/24/2018 Surgeon: Bryan Castelan MD, Brief History Of Present Illness: The patient is a 63-year-old male who comes in with cardiogenic sh ock and acute renal failure. Preoperative Diagnosis: Acute renal failure. Postoperative Diagnosis: Acute renal failure. Procedure Performed: Placement of a temporary left femoral dialysis catheter, microintroducer set wa s used. Anesthesia: Lidocaine 1% without epinephrine used, approximately 3 cc. Estimated Blood Loss: Less than 5 cc. Specimen: None. Findings: Dark red nonpulsatile blood return, Seldinger technique utilized. Complications: None. Disposition: Patient remained in the ICU in critical condition. Procedure In Detail: After informed consent was obtained, the patient was prepped and draped in the usual sterile fashion after adequate anesthesia was achieved using anatomic landmarks. An area of th e left femoral vein was anesthetized appropriately with 1% lidocaine without epinephrine. After appr opriately anesthetizing the area, a microintroducer finder needle was used to cannulate the left femo ral vein. Dark red nonpulsatile blood was returned. The micro wire was advanced and the needle was removed. A small lanette incision was made over the introduction site and then an introducer sheath was placed. Dark red nonpulsatile blood was returned once again and the wire was then removed. The sta ndard wire from the Mitesh set was then brought onto the field and passed through the introducer she ath. The introducer sheath was then removed. Sequential dilatation was then performed using Selding er technique over the standard wire and the catheter was introduced in the femoral vein without evide nce of complication. The wire out was called for the second time and dark red nonpulsatile blood was returned from both ports. Both ports flushed and withdrew quite easily and were packed with heparin ized saline and secured to the skin with the nylon suture in the set. The area was cleansed once aga in. A sterile dressing was placed over top. The patient tolerated the procedure well without eviden ce of complication, remained in the ICU in critical condition. All counts were correct at the end of the case. TK/MODL Voice ID: [id number] Report ID: [id number]
[2018-10-25] MEDS ORDERED: ZINC SULFATE 220 MG CAP PO SCH (09:00)
--- NOTE | 2018-10-26 14:48 | P.DS ---
Admission Date: 10/23/18 Discharge Date: 10/26/18 Disposition: Reason for Admission: Shock Consultations: Cardiology, Neurology, Nephrology, Pulmonology - Problems (1) Acute respiratory failure Status: Acute Qualifiers: Respiratory failure complication: hypoxia Qualified Code(s): J96.01 - Acute respiratory failure with hypoxia (2) Shock, septic Status: Acute (3) HYACINTH (acute kidney injury) Status: Acute (4) Atrial fibrillation with rapid ventricular response Status: Acute (5) NSTEMI (non-ST elevated myocardial infarction) Status: Acute (6) Liver cirrhosis Status: Acute Qualifiers: Hepatic cirrhosis type: other cirrhosis Qualified Code(s): K74.69 - Other cirrhosis of liver (7) Hepatitis C Status: Chronic Qualifiers: Viral hepatitis chronicity: chronic Hepatic coma status: without hepatic coma Qualified Code(s): B18.2 - Chronic viral hepatitis C Brief History of Present Illness: Patient is a 63-year-old gentleman who presents to the hospital with atrial fibrillation with rapid ventricular response and altered mental status. patient was seen at [facility] a few days ago with chest discomfort. He is discharged home with anti-inflammatories. Yesterday he was altered and he was confused. Patient fell and was found between 2 pieces of furniture. EMS was called and they found him to be up time did. They brought him to our hospital and he was found to have prior complaint as mentioned. Patient was initially given Cardizem. This helped convert patient into a sinus rhythm. Patient was also given 2 L of normal saline. Patient was tachypneic, and pt was found to have lactic acidosis. Patient also had renal failure with uremia and hyperkalemia. Decision was made to admit the patient to the hospital for further evaluation. While in the emergency room patient became more lethargic and hypotensive. Patient was intubated & he was started on Levophed. patient was admitted to the intensive care unit for further evaluation. In the ER patient was also found to have elevated troponin levels. Spoke with Cardiology regarding the atrial fibrillation and elevated troponin level and plan was to use digoxin to assist with management of atrial fibrillation as needed. We also spoke with Nephrology and decision was made to monitor renal function. Hospital Course: Please refer to the PN and H&P for detail plan of care. At around 11:58 a.m. on 10/24/2018 patient had Hyzaar line placed by . code was that of his blood pressure at that time was 37 or 32 with a map of 30. At that time a detailed discussion was done with family member the JOSUE his son. Disease process and treatment plan was explained in length and poor prognosis was also explained. Son at that time decided that patient can be DNR DNI and once his shore and see him he would like to go with comfort measures. Paper were signed in chart and order was placed on chart as well. Vital Signs/Physical Exam: Temp Pulse Resp BP Pulse Ox 100.6 F 101 H 16 97/43 L 100 10/24/18 12:00 10/24/18 15:30 10/24/18 14:45 10/24/18 15:30 10/24/18 11:39 Other Physical/Emotional Findings: Laboratory Data at Discharge: WBC 14.2 K/uL (4.3-10.9) H D 10/24/18 06:01 Hgb 13.2 g/dL (13.6-17.9) L 10/24/18 06:01 Hct 42.3 % (39.6-49.0) 10/24/18 06:01 Plt Count 100 K/uL (152-406) L 10/24/18 06:01 PT 16.5 SECONDS (9.5-12.5) H 10/24/18 06:01 INR 1.42 10/24/18 06:01 APTT 45.9 SECONDS (24.3-36.9) H 10/24/18 06:01 Sodium 146 mmol/L (136-145) H 10/24/18 06:01 Potassium 6.8 mmol/L (3.5-5.1) H* 10/24/18 06:01 BUN 70 mg/dL (7-18) H 10/24/18 06:01 Creatinine 4.44 mg/dL (0.55-1.3) H 10/24/18 06:01 Glucose 133 mg/dL (74-106) H 10/24/18 06:01 Phosphorus > 9.0 mg/dL (2.5-4.9) H* 10/24/18 06:01 Magnesium 3.5 mg/dL (1.8-2.4) H 10/24/18 06:01 Total Bilirubin 2.1 mg/dL (0.2-1.0) H 10/24/18 06:01 AST 673 U/L (15-37) H* D 10/24/18 06:01 ALT 178 U/L (12-78) H 10/24/18 06:01 Alkaline Phosphatase 182 U/L (45-117) H 10/24/18 06:01 Troponin I 12.90 ng/mL (0.0-0.045) H* 10/24/18 06:01 Home Medications: Furosemide 20 mg PO DAILY 10/24/18 Ibuprofen [Ibu] 600 mg PO QIDP PRN 10/24/18 Metformin ER [Glucophage ER] 1,000 mg PO BID 10/24/18 Pantoprazole [Protonix Tab] 40 mg PO DAILY 10/24/18 Ranitidine [Zantac*] 150 mg PO BID 10/24/18 Spironolactone 100 mg PO DAILY 10/24/18 Sucralfate [Carafate*] 1 gm PO QID 10/24/18 traMADol HCL [Ultram] 50 mg PO TID PRN 10/24/18
== END 2018-10-24 15:43 | disposition expired | DRG 871 ==
LOC: ER 18:27 → ERHOLD 22:32 → 3RD-ICU 23:13
PROVIDERS: ADMIT Hospitalist; ATTEND Hospitalist
PROC: 06HY33Z Insertion of Infusion Device into Lower Vein, Percutaneous Approach (ICD-10-PCS; principal; 2018-10-24)
DX: A41.9 Sepsis, unspecified organism (principal); R65.21 Severe sepsis with septic shock; J96.01 Acute respiratory failure with hypoxia; N17.0 Acute kidney failure with tubular necrosis; G93.41 Metabolic encephalopathy; I21.4 Non-ST elevation (NSTEMI) myocardial infarction; E87.2 Acidosis; N34.2 Other urethritis; I48.91 Unspecified atrial fibrillation; K74.60 Unspecified cirrhosis of liver; B18.2 Chronic viral hepatitis C; I10 Essential (primary) hypertension; Z98.84 Bariatric surgery status; E87.5 Hyperkalemia; Z66 Do not resuscitate
CPT/HCPCS: 31500; 36415; 51702; 71045; 71250; 74176; 80048; 80053; 80076; 81003; 81015; 82140; 82550; 82805; 82962; 83605; 83735; 83880; 84100; 84145; 84484; 85025; 85610; 85730; 86317; 86705; 86706; 87040; 87077; 87086; 87088; 87186; 87205; 93005; 93306; 94002; 99285; J0610; J0692; J1644; J1720; J2370; J2704; J3411; J7030; J7060; P9047